=== PATIENT | male | born 1935 | race Caucasian/White ===

== ENCOUNTER 2017-09-06 12:31 | Emergency (ER) | payer OTHER ==
[2017-09-06 12:36] VITALS: BMI 24.7
--- NOTE | 2017-09-06 14:21 | DR.HTN ---
HPI - Time Seen Time seen: 14:00 - Primary Care Physician Primary Care Physician: IOANA - HPI Comment HPI Comment: PATIENT WAS AT STORE. CHECK BP. ELEVATED. HERE FOR EVALUATION. HAVE NERVOUS STOMACK. HAVE NEUTROPENIA AND SEVERAL - Complaints Chief Complaint Doctors Comments: ELEVATED BP. Chief Complaint:: PT. C/O HIGH BLOOD PRESSURE TODAY PT. STATES THIS MORNING HE HAD CHILLS AND HAD A "NERVOUS STOMACH, LIKE HE WAS SHAKING INSIDE." PT. STATES HIS B/P WAS 187/87 [employer]. DENIES PAIN OR ANY OTHER SYMPTOMS. - Reviewed Nurses Notes Reviewed: Yes - Source History Provided: Patient - Mode of Arrival Mode of Arrival: Ambulatory - Timing Onset of Chief Complaint: 09/06/17 - Severity What was the maximum recorded B/P?: 189/87 Severity: Moderate - Context Circumstances: Spontaneous Onset History of: Hypertension Treatment of HTN Prior to Arrival: Taking meds as prescribed Recent use of:: denies: Cocaine, Amphetamines, Cold medications - Associated Signs and Symptoms HTN Associated Signs and Symptoms: None PMH - PMH Past Medical History: Yes Past Medical History: Diabetes, Dyslipidemia, Hypertension Past Medical History Comment: PROSTATE CANCER Past Surgical History: Yes Surgical History: Other Past Surgical History Comment: PROSTATE - Family History History of Family Medical Conditions: Yes Family Medical History: Cancer - Social History Does patient currently use any type of tobacco product: No Have you used tobacco products in the last 12 months: No Type of Tobacco Use: None Does any household member use tobacco: No Alcohol Use: None Do you use any recreational Drugs:: No Lives With: Spouse Lives Where: Home - infectious screening In the last 2 months have you had wt loss of >10#?: NO Have you had fever, night sweats or hemotysis?: No Have you traveled outside the country in the last 6 months?: No Isolation: Standard ROS - Review of Systems Constitutional: No Symptoms Reported Eyes: No Symptoms Reported ENTM: No Symptoms Reported Respiratoy: No Symptoms Reported Cardiovascular: No Symptoms Reported Gastrointestinal/Abdominal: No Symptoms Reported Genitourinary: No Symptoms Reported Neurological: No Symptoms Reported Musculoskeletal: No Symptoms Reported Integumentary: No Symptoms Reported Hematologic/Lymphatic: Anemia, Other (NEUTROPENIA) Endocrine: No Symptoms Reported All Other Systems: Reviewed and Negative PE - Vital Signs Vitals: Temperature 97.8 F Pulse Rate 59 Respiratory Rate 18 Blood Pressure [Left Arm] 163/73 Blood Pressure [Right Arm] 125/63 Blood Pressure 140/95 O2 Sat by Pulse Oximetry 96 - General Limitations: No Limitations General Appearance: Alert - Head Head Exam: Normal Inspection - Eyes Eye exam: Normal Appearance Pupils: Regular, Round: Bilateral, Reactive: Bilateral Sclera/Conjunctival: Normal Inspection: Bilateral - ENT ENT Exam: Normal External Ear Exam - Neck Neck Exam: Trachea Midline - Chest Chest Inspection: Symmetric Chest Wall Rise - Respiratory Respiratory Exam: Normal Lung Sounds Bilat Respiratory Exam: Bilateral Rhonchi, Lower Rhonchi - Cardiovascular Cardiovascular Exam: Regular Rate, Normal Rhythm, Normal Heart Sounds - Abdominal Exam Abdominal Exam: Normal Bowel Sounds, Soft. negative: Tenderness - Extremities Extremities Exam: Normal Inspection - Back Back Exam: Normal Inspection - Neurologic Neurological Exam: Alert, Oriented X3 Speech: Fluid Speech Cranial Nerve Exam: EOM Function (II, III, IV, ): Normal Upper Motor Neuron Exam: Babinski Sign: Normal - Psychiatric Psychiatric Exam: Normal Affect, Normal Mood - Skin Skin Exam: Normal Color MDM - Additional Information Obtained Additional Information Obtained From: Family - Differential Diagnosis Differential Diagnosis: Hyertension, essential Differential Diagnosis Comment: NEUTROPENIA Course - Treatment Treatment: SEE ORDERS. - Education/Counseling Education/Counseling: Patient, Family, Education Educated On: Diagnosis, Needs for Follow Up ROR - Labs Reviewed Laboratory Results Reviewed?: Yes Result Diagrams: 09/06/17 14:26 09/06/17 14:26 Laboratory: WBC 1.5 X10^3/uL (3.6-10.0) L* 09/06/17 14: RBC 4.05 X10^6/uL (4.7-6.0) L 09/06/17 14:26 Hgb 11.0 g/dL (13.5-18.0) L 09/06/17 14:26 Hct 33.2 % (42.0-54.0) L 09/06/17 14: MCV 82.0 fL (80.0-100.0) 09/06/17 14:26 MCH 27.1 pg (27.0-34.0) 09/06/17 14: MCHC 33.1 g/dL (33.0-35.0) 09/06/17 14: RDW 16.4 % (11.6-16.5) 09/06/17 14:26 Plt Count 188 X10^3/uL (150.0-450.0) 09/06/17 14: Plt Count Comment Adequate (ADEQUATE) 09/06/17 14: MPV 7.0 fL (7.4-11.0) L 09/06/17 14: Neut % 52.6 % (42.0-75.0) 09/06/17 14: Lymph % 41.9 % (21.0-51.0) 09/06/17 14:26 [place] % 4.1 % (0.0-13.0) 09/06/17 14: Eos % 1.0 % (0.9-2.9) 09/06/17 14: Baso % 0.4 % (0.2-1.0) 09/06/17 14: Neut # 0.8 x10^3/uL (2.2-4.8) L 09/06/17 14: Lymph # 0.6 X10^3/uL (1.3-2.9) L 09/06/17 14:26 [place] # 0.1 x10^3/uL (0.3-0.8) L 09/06/17 14: Eos # 0.0 x10^3/uL (0.0-0.2) 09/06/17 14:26 Baso # 0.0 X10^3/uL (0.0-0.1) 09/06/17 14: Absolute Nucleated RBC 0.1 /100WBC 09/06/17 14:26 Total Counted 50 09/06/17 14:26 Neutrophils % (Manual) 56 % (39-76) 09/06/17 14:26 Lymphocytes % (Manual) 44 % (13-43) H 09/06/17 14:26 Plt Morphology Comment Normal (NORMAL) 09/06/17 14: RBC Morphology Normal (NORMAL) 09/06/17 14:26 Sodium 142 mmol/L (136-145) 09/06/17 14:26 Corrected Sodium 144 mmol/L (136-145) 09/06/17 14:26 Potassium 3.9 mmol/L (3.5-5.1) 09/06/17 14:26 Chloride 107 mmol/L (98-107) 09/06/17 14:26 Carbon Dioxide 26.5 mmol/L (21-32) 09/06/17 14:26 BUN 20 mg/dL (7-18) H 09/06/17 14:26 Creatinine 1.27 mg/dL (0.70-1.30) 09/06/17 14:26 Est GFR (MDRD) Af Amer > 60 (>60) 09/06/17 14:26 Est GFR (MDRD) Non-Af 58 (>60) L 09/06/17 14:26 Glucose 184 mg/dL (65-99) H 09/06/17 14:26 Calcium 8.5 mg/dL (8.5-10.1) 09/06/17 14:26 Corrected Calcium TNP 09/06/17 14:26 Total Bilirubin 0.20 mg/dL (0.2-1.0) 09/06/17 14:26 AST 12 Units/L (15-37) L 09/06/17 14:26 ALT 21 Units/L (12-78) 09/06/17 14:26 Alkaline Phosphatase 120 Units/L (46-116) H 09/06/17 14:26 Total Protein 7.0 g/dL (6.4-8.2) 09/06/17 14:26 Albumin 3.5 g/dL (3.4-5.0) 09/06/17 14:26 Globulin 3.5 g/dL (2.5-4.5) 09/06/17 14:26 Albumin/Globulin Ratio 1.0 Ratio (1.1-2.1) L 09/06/17 14:26 - Diagnosis Discharge Problem: Abdominal pain Qualifiers: Abdominal location: generalized Qualified Code(s): R10.84 - Generalized abdominal pain Hypertension Qualifiers: Hypertension type: essential hypertension Qualified Code(s): I10 - Essential ( primary) hypertension - Discharge Plan Disposition: 01 HOME, SELF-CARE Condition: Stable - Follow ups/Referrals Follow ups/Referrals: Oc Rivera [Primary Care Provider] - 2 days - Instructions Instructions: Hypertension, [id number], Neutropenia Additional Instructions: RETURN TO ED IF WORSE.
[2017-09-06 14:35] LABS: BASOPHILS % (AUTO) 0.4 % (0.2-1.0); HEMATOCRIT 33.2 % (42.0-54.0); LYMPHOCYTES # (AUTO) 0.6 X10^3/uL (1.3-2.9); LYMPHOCYTES % (AUTO) 41.9 % (21.0-51.0); MEAN CORPUSCULAR HEMOGLOBIN 27.1 pg (27.0-34.0); MEAN CORPUSCULAR HGB CONC 33.1 g/dL (33.0-35.0); MONOCYTES # (AUTO) 0.1 x10^3/uL (0.3-0.8); MONOCYTES % (AUTO) 4.1 % (0.0-13.0); NEUTROPHILS # (AUTO) 0.8 x10^3/uL (2.2-4.8); NEUTROPHILS % (AUTO) 52.6 % (42.0-75.0); PLATELET COUNT 188 X10^3/uL (150.0-450.0); RED BLOOD COUNT 4.05 X10^6/uL (4.7-6.0); RED CELL DISTRIBUTION WIDTH 16.4 % (11.6-16.5)
[2017-09-06 14:48] LABS: ALANINE AMINOTRANSFERASE 21 Units/L (12-78); ALBUMIN 3.5 g/dL (3.4-5.0); ALKALINE PHOSPHATASE 120 Units/L (46-116); ASPARTATE AMINO TRANSFERASE 12 Units/L (15-37); BLOOD UREA NITROGEN 20 mg/dL (7-18); CALCIUM 8.5 mg/dL (8.5-10.1); CARBON DIOXIDE 26.5 mmol/L (21-32); CHLORIDE 107 mmol/L (98-107); COR NA(FOR HYPERGLY) 144 mmol/L (136-145); CREATININE 1.27 mg/dL (0.70-1.30); SODIUM 142 mmol/L (136-145); WHITE BLOOD COUNT 1.5 X10^3/uL (3.6-10.0); eGFR BLACK RACES > 60 (>60); eGFR NON BLACK RACES 58 (>60)
[2017-09-06 14:56] VITALS: BP 163/73
[2017-09-06 15:03] LABS: PLATELET MORPHOLOGY COMMENT NORMAL (NORMAL)
== END 2017-09-06 16:22 | disposition home or self-care (01) ==
LOC: ER 12:46
DX: I10 Essential (primary) hypertension (principal); R10.84 Generalized abdominal pain
CPT/HCPCS: 36415; 80053; 85025; 99282; 99283

== ENCOUNTER 2018-06-01 16:10 | Inpatient (IN) ==
[2018-06-01] MEDS ORDERED: TUSSIONEX PENNKINETIC SUSP PO PRN (17:13)
[2018-06-01] MEDS ORDERED: SALINE 3% 15 ML NEB TX NEB ONE (17:20)
[2018-06-01] MEDS ORDERED: NS 100 ML IV + SPIKE MINIBAG* 100 ML IV ONE (17:28)
[2018-06-01] MEDS ORDERED: NS 1/2 1000 ML IV 1,000 ML IV ONE (17:30)
[2018-06-01] MEDS ORDERED: SALINE 3% 15 ML NEB TX ONE (17:31)
[2018-06-01 17:47] LABS: BASOPHILS % (AUTO) 0.5 % (0.2-1.0); EOSINOPHILS % (AUTO) 0.2 % (0.9-2.9); HEMATOCRIT 29.9 % (42.0-54.0); LYMPHOCYTES # (AUTO) 0.6 X10^3/uL (1.3-2.9); LYMPHOCYTES % (AUTO) 46.9 % (21.0-51.0); MEAN CORPUSCULAR HEMOGLOBIN 25.9 pg (27.0-34.0); MEAN CORPUSCULAR HGB CONC 33.4 g/dL (33.0-35.0); MEAN CORPUSCULAR VOLUME 77.4 fL (80.0-100.0); MEAN PLATELET VOLUME 7.3 fL (7.4-11.0); MONOCYTES # (AUTO) 0.2 x10^3/uL (0.3-0.8); MONOCYTES % (AUTO) 13.9 % (0.0-13.0); NEUTROPHILS # (AUTO) 0.5 x10^3/uL (2.2-4.8); NEUTROPHILS % (AUTO) 38.5 % (42.0-75.0); PLATELET COUNT 188 X10^3/uL (150.0-450.0); RED BLOOD COUNT 3.86 X10^6/uL (4.7-6.0); RED CELL DISTRIBUTION WIDTH 17.1 % (11.6-16.5)
[2018-06-01 17:59] LABS: WHITE BLOOD COUNT 1.3 X10^3/uL (3.6-10.0)
[2018-06-01] MEDS ORDERED: FORTAZ or TAZICEF VIAL INJ IVP SCH (18:00)
[2018-06-01] MEDS ORDERED: LEVAQUIN PREMIX IV 750 MG 750 MG/150 ML BAG IV SCH (18:00)
[2018-06-01 18:01] LABS: ALANINE AMINOTRANSFERASE 24 Units/L (12-78); ALBUMIN 3.3 g/dL (3.4-5.0); ALKALINE PHOSPHATASE 144 Units/L (46-116); ASPARTATE AMINO TRANSFERASE 14 Units/L (15-37); BLOOD UREA NITROGEN 20 mg/dL (7-18); CALCIUM 8.9 mg/dL (8.5-10.1); CHLORIDE 104 mmol/L (98-107); COR CA(FOR HYPOALB) 9.5 mg/dL (8.5-10.1); COR NA(FOR HYPERGLY) 140 mmol/L (136-145); CREATININE 1.41 mg/dL (0.70-1.30); SODIUM 140 mmol/L (136-145); TOTAL PROTEIN 7.1 g/dL (6.4-8.2); eGFR NON BLACK RACES 51 (>60)
[2018-06-01 18:10] LABS: CKMB % 3.7 % (<4); CREATINE KINASE 27 Units/L (39-308); CREATINE KINASE MB < 1.0 ng/mL (0-4.0); TROPONIN I < 0.02 ng/mL (0-1.5)
[2018-06-01 18:22] LABS: BAND NEUTROPHILS % 9 % (0-10); METAMYELOCYTES % 3
[2018-06-01 18:23] LABS: HYPOCHROMASIA SLIGHT; PLATELET MORPHOLOGY COMMENT NORMAL (NORMAL)
[2018-06-01 18:24] LABS: ANISOCYTOSIS SLIGHT
[2018-06-01] MEDS: NS 1/2 1000 ML IV 1,000 ML IV SCH (18:25)
[2018-06-01 18:33] LABS: BILIRUBIN,URINE NEGATIVE (NEGATIVE); BLOOD/HEMOGLOBIN,URINE NEGATIVE (NEGATIVE); GLUCOSE, URINE NEGATIVE (NEGATIVE); KETONES,URINE NEGATIVE (NEGATIVE); LEUKOCYTE ESTERASE ,URINE NEGATIVE (NEGATIVE); NITRITES,URINE NEGATIVE (NEGATIVE); PROTEIN,URINE NEGATIVE (NEGATIVE); UROBILINOGEN,URINE NORMAL (NORMAL)
[2018-06-01 18:38] LABS: APPEARANCE,URINE CLEAR (CLEAR); COLOR,URINE YELLOW (YELLOW)
[2018-06-01 18:51] VITALS: BMI 26.0
--- NOTE | 2018-06-01 19:32 | RAD ---
HISTORY: 82-year-old male with questionable pneumonia. Study: Frontal view of the chest. Comparison: None. Findings: Monitoring leads overlie the right lung base. The trachea is midline. The cardiac silhouette is enlarged with low lung volumes. The lungs are erick ar without focal consolidation, effusion or pneumothorax. Soft tissues are unremarkable. Osseous str uctures are unremarkable. IMPRESSION: 1. Cardiomegaly without other acute cardiopulmonary process. 2. Limited study secondary to monitoring leads. Reported By:
[2018-06-01] MEDS ORDERED: MAGNESIUM SULFATE 1 GRAM/100 mL PREMIX 1 G/100 ML BAG IV ONE (20:44)
[2018-06-01] MEDS: DUONEB 0.5 MG/3 MG NEB SCH (21:04)
[2018-06-01] MEDS: ROBITUSSIN DM PO SCH (21:37)
[2018-06-01] MEDS: RESTORIL CAP 15 MG PO PRN (21:53)
[2018-06-02] MEDS ORDERED: K-DUR TAB 20 MEQ PO ONE (00:07)
[2018-06-02 00:19] LABS: CREATINE KINASE 25 Units/L (39-308); CREATINE KINASE MB < 1.0 ng/mL (0-4.0); TROPONIN I < 0.02 ng/mL (0-1.5)
[2018-06-02 06:55] LABS: ALANINE AMINOTRANSFERASE 20 Units/L (12-78); ALBUMIN 2.9 g/dL (3.4-5.0); ALKALINE PHOSPHATASE 121 Units/L (46-116); ASPARTATE AMINO TRANSFERASE 10 Units/L (15-37); BLOOD UREA NITROGEN 21 mg/dL (7-18); CALCIUM 8.6 mg/dL (8.5-10.1); CARBON DIOXIDE 26.4 mmol/L (21-32); CHLORIDE 106 mmol/L (98-107); CKMB % 4.4 % (<4); COR CA(FOR HYPOALB) 9.5 mg/dL (8.5-10.1); CREATINE KINASE 23 Units/L (39-308); CREATINE KINASE MB < 1.0 ng/mL (0-4.0); CREATININE 1.41 mg/dL (0.70-1.30); SODIUM 140 mmol/L (136-145); TOTAL PROTEIN 6.4 g/dL (6.4-8.2); TROPONIN I < 0.02 ng/mL (0-1.5); eGFR NON BLACK RACES 51 (>60)
[2018-06-02 07:07] LABS: BASOPHILS % (AUTO) 0.5 % (0.2-1.0); EOSINOPHILS % (AUTO) 0.8 % (0.9-2.9); HEMATOCRIT 26.9 % (42.0-54.0); HEMOGLOBIN 9.2 g/dL (13.5-18.0); LYMPHOCYTES # (AUTO) 0.6 X10^3/uL (1.3-2.9); LYMPHOCYTES % (AUTO) 49.2 % (21.0-51.0); MEAN CORPUSCULAR HEMOGLOBIN 26.3 pg (27.0-34.0); MEAN CORPUSCULAR HGB CONC 34.3 g/dL (33.0-35.0); MEAN CORPUSCULAR VOLUME 76.8 fL (80.0-100.0); MEAN PLATELET VOLUME 7.7 fL (7.4-11.0); MONOCYTES # (AUTO) 0.3 x10^3/uL (0.3-0.8); MONOCYTES % (AUTO) 21.4 % (0.0-13.0); NEUTROPHILS # (AUTO) 0.4 x10^3/uL (2.2-4.8); NEUTROPHILS % (AUTO) 28.1 % (42.0-75.0); PLATELET COUNT 168 X10^3/uL (150.0-450.0); RED CELL DISTRIBUTION WIDTH 17.7 % (11.6-16.5)
[2018-06-02 07:14] LABS: WHITE BLOOD COUNT 1.3 X10^3/uL (3.6-10.0)
[2018-06-02 07:24] LABS: PLATELET MORPHOLOGY COMMENT NORMAL (NORMAL)
--- NOTE | 2018-06-02 07:35 | RAD ---
HISTORY: Follow-up pneumonia Study: Chest AP portable Comparison: 06/01/2018 Findings: The heart is mildly enlarged. No congestive heart failure is noted. The mikhail are normal. The lung fie lds are clear. No pleural effusions are identified. IMPRESSION: Mild cardiomegaly without congestive heart failure Lungs clear Reported By:
[2018-06-02] MEDS ORDERED: NS 1/2 1000 ML IV 1,000 ML IV ONE ×2 (07:47→22:02)
[2018-06-02] MEDS: DUONEB 0.5 MG/3 MG NEB SCH ×4 (07:59→20:18)
[2018-06-02] MEDS: NS 1/2 1000 ML IV 1,000 ML IV SCH ×2 (08:07→22:33)
[2018-06-02] MEDS: FORTAZ or TAZICEF VIAL INJ IVP SCH ×2 (08:08→21:00)
[2018-06-02] MEDS: ROBITUSSIN DM PO SCH ×4 (08:08→21:00)
--- NOTE | 2018-06-02 13:23 | DR.H&P ---
H&P - History & Physical for Day of: H&P Date: 06/01/18 - Chief Complaint Chief Complaint: cough, shortness of breath, weakness, low WBC count - History of Present Illness History of Present Illness: is a 82 year old patient of ours who presented to the hospital as a direct admission presented to the hospital as a direct admission for leukopenia and bronchopneumonia. Patient reports cough, shortness of breath, and weakness that began one day ago. On examination, he is noted with scattered wheezing throughout lung chavez. He has a history significant for the following: Cataracts, Hyperlipidemia, Bronchitis, Inginal Hernia, BPH, Arthritis, DM type II, Prostate CA. On arrival, vitals were 98.0-68 -18-98%RA-130/70. Labs were obtained. Abnormal lab values include the following : WBC 1.3, RBC 3.86, Hgb 10.0, Hct 29.9, MCH 25.9, RDW 17.1, MPV 7.3, BUN 20, Creatinine 1.41, GFR non 51, Glucose 111, AST 14, Alk Phos 144, Creatine Kinase 27, 25, Albumin 3.3, A/G Ratio 0.9, Magnesium 1.6. Blood Cultures x2 Pending. Urine culture pending. Chest X-Ray: Cardiomegaly without other acute cardiopulmonary process. Limited study secondary to monitoring leads. EKG: Sinus Rhythm. Multiple Ventricular Premature Complexes. Left Bundle Branch Block. Rate=68. He was started on Saline 3% neb x1, Fortaz 1gm IV Q8hr, Levaquin 750mg IV daily, Magnesium 1gm IV x1, Tussionex 5ml po Q12hr PRN, 1/2 NS @75ml/hr, Duoneb 0.5/3mg neb QID, Robitussin Dm 10ml po QID, OTBS ACHS. If hemoglobin should fall below 1.0, we will administer neuopgen. Otherwise, we plan to follow up with AM labs and continue to monitor patient. - Past Medical History Past Medical History: Arthritis, Diabetes, Dyslipidemia, Hypertension Additional Medical History: prostate cancer, BPH, - Past Surgical History Surgical History: Other Additional Surgical History: hernia repair - Family History Family Medical History: [place], Hypertension - Social History Does patient currently use any type of tobacco product: No Have you used tobacco products in the last 12 months: No Type of Tobacco Use: None Does any household member use tobacco: No Alcohol Use: None Drug Use: None - Medications Home Medications: No Known Drug Allergies Allergy (Verified 09/06/17 12:36) CONTINUE taking the following medications aspirin [Aspirin Low Dose] 81 mg PO QDAY 06/01/18 [History] cyanocobalamin (vitamin B-12) [Vitamin B-12] 1,000 mcg PO QDAY 06/01/18 [History ] eszopiclone 1 mg PO QHS 06/01/18 [History] metformin 1 tab PO DAILY 06/01/18 [History] montelukast 1 tab PO DAILY 06/01/18 [History] multivitamin [Multiple Vitamins] 1 tab PO QDAY 06/01/18 [History] omeprazole 1 cap PO DAILY 06/01/18 [History] simvastatin 1 tab PO HS 06/01/18 [History] tamsulosin 1 cap PO HS 06/01/18 [History] - Review of Systems Constitutional: Weakness Eyes: No Symptoms Reported ENT: No Symptoms Reported Respiratory: Cough, Shortness of Breath, Wheezing Cardiovascular: No Symptoms Reported Gastrointestinal: No Symptoms Reported Genitourinary: No Symptoms Reported Musculoskeletal: No Symptoms Reported Skin: No Symptoms Reported Neurological: Weakness - Physical Exam Vital Signs: Temperature 98.2 F Pulse Rate [Radial] 60 Pulse Rate 70 Respiratory Rate 18 Blood Pressure [Left Arm] 150/73 Blood Pressure [Right Arm] 125/63 Blood Pressure 163/73 O2 Sat by Pulse Oximetry 99 Oriented: Normal Eyes: Normal Ear: Normal Nose: Normal Throat: Normal Respiratory: Wheezes Throughout Cardiovascular: Normal. negative: S3, S4, Murmur : Normal Auscultation: Bowel Sounds: Normal Palpation: Normal Tenderness: Diffuse, Mild. negative: Rebound, Guarding, Rigidity Skin: Normal Musculoskeletal: Normal Psychiatric: Normal Mood Description: Calm Affect: Normal Speech Pattern: Clear - Assessment/Plan (1) Bronchopneumonia Status: Acute Plan: levaquin 750mg iv daily, fortaz 1gm iv q12h, duonebs, respiratory treatments, continue to monitor (2) Leukopenia Qualifiers: Leukopenia type: unspecified Qualified Code(s): D72.819 - Decreased white blood cell count, unspecified Status: Acute Plan: administer neuopgen if hemoglobin falls below 1.0, continue to monitor - Allergies Allergies/Adverse Reactions: Allergies Allergy/AdvReac Type Severity Reaction Status Date / Time No Known Drug Allergies Allergy Verified 09/06/17 12:36
[2018-06-02] MEDS ORDERED: PATIENT'S HOME MEDICATION (Lisinopril 10 MG) PO SCH (14:30)
[2018-06-02] MEDS ORDERED: ESZOPICLONE 1 MG PO SCH (14:30)
[2018-06-02] MEDS: TAB-A-VITE PO SCH (16:17)
[2018-06-02] MEDS: ZESTRIL TAB 10 MG PO SCH (16:18)
[2018-06-02] MEDS: VITAMIN B-12 PO SCH (16:18)
[2018-06-02] MEDS: PriLOSEC PO SCH (16:18)
[2018-06-02] MEDS: SINGULAIR TAB 10 MG PO SCH (16:18)
[2018-06-02] MEDS: ASPIRIN EC 81 MG PO SCH (16:18)
[2018-06-02] MEDS ORDERED: MAALOX or MYLANTA PO PRN (20:59)
[2018-06-02] MEDS: ZOCOR TAB 20 MG PO SCH (21:00)
[2018-06-02] MEDS: RESTORIL CAP 15 MG PO PRN (21:00)
[2018-06-02] MEDS: FLOMAX PO SCH (21:00)
[2018-06-03 05:23] LABS: BASOPHILS % (AUTO) 0.8 % (0.2-1.0); EOSINOPHILS % (AUTO) 0.6 % (0.9-2.9); HEMATOCRIT 25.6 % (42.0-54.0); HEMOGLOBIN 8.6 g/dL (13.5-18.0); LYMPHOCYTES # (AUTO) 0.6 X10^3/uL (1.3-2.9); LYMPHOCYTES % (AUTO) 49.9 % (21.0-51.0); MEAN CORPUSCULAR HEMOGLOBIN 25.9 pg (27.0-34.0); MEAN CORPUSCULAR HGB CONC 33.7 g/dL (33.0-35.0); MEAN CORPUSCULAR VOLUME 76.8 fL (80.0-100.0); MEAN PLATELET VOLUME 7.6 fL (7.4-11.0); MONOCYTES # (AUTO) 0.2 x10^3/uL (0.3-0.8); MONOCYTES % (AUTO) 14.7 % (0.0-13.0); NEUTROPHILS # (AUTO) 0.4 x10^3/uL (2.2-4.8); PLATELET COUNT 163 X10^3/uL (150.0-450.0); RED BLOOD COUNT 3.33 X10^6/uL (4.7-6.0); RED CELL DISTRIBUTION WIDTH 17.3 % (11.6-16.5)
[2018-06-03 05:27] LABS: WHITE BLOOD COUNT 1.1 X10^3/uL (3.6-10.0)
[2018-06-03 05:28] LABS: ALANINE AMINOTRANSFERASE 21 Units/L (12-78); ALBUMIN 2.6 g/dL (3.4-5.0); ALKALINE PHOSPHATASE 109 Units/L (46-116); ASPARTATE AMINO TRANSFERASE 12 Units/L (15-37); BLOOD UREA NITROGEN 21 mg/dL (7-18); CALCIUM 8.3 mg/dL (8.5-10.1); CARBON DIOXIDE 27.7 mmol/L (21-32); CHLORIDE 109 mmol/L (98-107); COR CA(FOR HYPOALB) 9.4 mg/dL (8.5-10.1); COR NA(FOR HYPERGLY) 144 mmol/L (136-145); CREATININE 1.31 mg/dL (0.70-1.30); SODIUM 143 mmol/L (136-145); eGFR NON BLACK RACES 56 (>60)
[2018-06-03 05:36] LABS: ANISOCYTOSIS SLIGHT; HYPOCHROMASIA 1+; PLATELET MORPHOLOGY COMMENT NORMAL (NORMAL)
--- NOTE | 2018-06-03 06:53 | RAD ---
Examination: AP chest History: SOB Comparison 06/02/2018 Findings: Stable heart size with essentially clear lungs. There is no evidence for pulmonary consoli dation, pulmonary edema or pleural effusion. Impression: No interval change; no acute findings. Reported By:
[2018-06-03] MEDS ORDERED: METFORMIN PO SCH (09:00)
[2018-06-03] MEDS: FORTAZ or TAZICEF VIAL INJ IVP SCH ×2 (09:20→21:50)
[2018-06-03] MEDS: LEVAQUIN PREMIX IV 750 MG 750 MG/150 ML BAG IV SCH (09:20)
[2018-06-03] MEDS: ROBITUSSIN DM PO SCH ×4 (09:20→21:50)
[2018-06-03] MEDS: SINGULAIR TAB 10 MG PO SCH (09:21)
[2018-06-03] MEDS: TAB-A-VITE PO SCH (09:21)
[2018-06-03] MEDS: ZESTRIL TAB 10 MG PO SCH (09:21)
[2018-06-03] MEDS: GLUCOPHAGE XR PO SCH (09:21)
[2018-06-03] MEDS: VITAMIN B-12 PO SCH (09:21)
[2018-06-03] MEDS: PriLOSEC PO SCH (09:21)
[2018-06-03] MEDS: ASPIRIN EC 81 MG PO SCH (09:21)
[2018-06-03] MEDS: DUONEB 0.5 MG/3 MG NEB SCH ×4 (09:37→20:15)
[2018-06-03] MEDS ORDERED: NS 100 ML IV 100 ML IV ONE (11:59)
--- NOTE | 2018-06-03 13:17 | CT ---
CT OF THE ABDOMEN AND PELVIS WITH CONTRAST HISTORY: Prostate cancer with urinary retention and left flank pain Comparison: 08/16/2014 Technique: Multiple axial images of the abdomen and pelvis were obtained from the lung bases to the pubic symphy sis follow the administration of IV contrast. Dose reduction techniques including Automated Exposure Control (AEC) and adjustment of mA and kV were utlized. Findings: The heart is normal in size. There is no pericardial effusion. Left-sided pleural effusion. Liver and spleen are normal in size, enhancement characteristics and contour. No focal lesions. The p ortal vein is patent. No ductal dilitation. Gallbladder is present. No calcified gallstones or gallbl adder wall thickening. The pancreas is unremarkable. Adrenal glands are normal. Kidneys enhance symme trically without hydronephrosis or nephrolithiasis. Simple bilateral renal cysts No bowel obstruction or inflammation. Severe diverticulosis including focal diverticular inflammation in the left lower quadrant without evidence of perforation or abscess. Normal appendix. No abnormal appearing mesenteric or retroperitoneal lymph nodes. No free fluid or fluid collections. The bladder is normal in appearance. Prostate removed. No free fluid or abnormal pelvic lymph nodes. No aggressive osseous lesions. IMPRESSION: 1. Acute sigmoid diverticulitis. Reported By:
[2018-06-03] MEDS ORDERED: NS 1/2 1000 ML IV 1,000 ML IV ONE (13:28)
--- NOTE | 2018-06-03 13:28 | CT ---
THORACIC SPINE CT WITHOUT IV CONTRAST CLINICAL INDICATION: Prostate cancer and urinary retention. TECHNIQUE: Multiple-row detector helical CT examination of the thoracic spine without IV contrast. Ax ial, sagittal, and coronal reconstructed images.Dose reduction techniques including Automated Exposur e Control (AEC) and adjustment of mA and kV were utlized. COMPARISON: None. FINDINGS: There is no evidence of acute fracture or subluxation. Normal alignment is maintained without scolios is or listhesis. Vertebral body heights are maintained. No aggressive osseous lesions are identified . Mild multilevel degenerative disc disease. Evaluation of the individual levels demonstrates no disc herniation, spinal canal stenosis, or neural foraminal narrowing. The paraspinal soft tissues and in trathoracic structures demonstrate no abnormality. IMPRESSION: 1. Mild multilevel degenerative disc disease without acute abnormality. Reported By:
--- NOTE | 2018-06-03 13:28 | CT ---
LUMBAR SPINE CT WITHOUT IV CONTRAST CLINICAL INDICATION: Prostate cancer and urinary retention. TECHNIQUE: Multiple-row detector helical CT examination of the lumbar spine. Axial, sagittal, and cor onal reconstructed images. Dose reduction techniques including Automated Exposure Control (AEC) and a djustment of mA and kV were utlized. COMPARISON: None. FINDINGS: There is no evidence of acute fracture or subluxation. Normal alignment is maintained without scolios is or listhesis. Vertebral body heights are maintained. No aggressive osseous lesions are identified. Multilevel degenerative disc disease most notable at L4-5 and L5-S1. Evaluation of the individual le vels demonstrates no disc herniation, spinal canal stenosis, or neural foraminal narrowing. L1 batool ioma. IMPRESSION: 1. Multilevel degenerative disc disease. 2. Incidental note of L1 hemangioma. Reported By:
[2018-06-03] MEDS: NS 1/2 1000 ML IV 1,000 ML IV SCH (13:39)
[2018-06-03] MEDS: FLAGYL IV PREMIX 500 MG BAG 500 MG/100 ML BAG IV SCH ×2 (17:32→23:02)
[2018-06-03] MEDS ORDERED: TYLENOL 325 MG TAB PO PRN (17:54)
[2018-06-03] MEDS: FLOMAX PO SCH (21:49)
[2018-06-03] MEDS: ZOCOR TAB 20 MG PO SCH (21:49)
[2018-06-03] MEDS: NEUPOGEN SC SCH (23:02)
[2018-06-04] MEDS ORDERED: NS 1/2 1000 ML IV 1,000 ML IV ONE (02:55)
[2018-06-04] MEDS: NS 1/2 1000 ML IV 1,000 ML IV SCH (02:58)
[2018-06-04 05:48] LABS: BASOPHILS % (AUTO) 0.7 % (0.2-1.0); HEMATOCRIT 28.5 % (42.0-54.0); HEMOGLOBIN 9.6 g/dL (13.5-18.0); LYMPHOCYTES # (AUTO) 0.4 X10^3/uL (1.3-2.9); LYMPHOCYTES % (AUTO) 35.2 % (21.0-51.0); MEAN CORPUSCULAR HEMOGLOBIN 25.8 pg (27.0-34.0); MEAN CORPUSCULAR HGB CONC 33.6 g/dL (33.0-35.0); MEAN CORPUSCULAR VOLUME 76.9 fL (80.0-100.0); MEAN PLATELET VOLUME 7.5 fL (7.4-11.0); MONOCYTES # (AUTO) 0.3 x10^3/uL (0.3-0.8); MONOCYTES % (AUTO) 27.7 % (0.0-13.0); NEUTROPHILS # (AUTO) 0.4 x10^3/uL (2.2-4.8); NEUTROPHILS % (AUTO) 35.4 % (42.0-75.0); PLATELET COUNT 184 X10^3/uL (150.0-450.0)
[2018-06-04 06:04] LABS: ALANINE AMINOTRANSFERASE 22 Units/L (12-78); ALBUMIN 2.9 g/dL (3.4-5.0); ALKALINE PHOSPHATASE 120 Units/L (46-116); ASPARTATE AMINO TRANSFERASE 10 Units/L (15-37); BLOOD UREA NITROGEN 16 mg/dL (7-18); CALCIUM 8.8 mg/dL (8.5-10.1); CARBON DIOXIDE 24.7 mmol/L (21-32); CHLORIDE 107 mmol/L (98-107); COR CA(FOR HYPOALB) 9.7 mg/dL (8.5-10.1); COR NA(FOR HYPERGLY) 143 mmol/L (136-145); CREATININE 1.23 mg/dL (0.70-1.30); SODIUM 142 mmol/L (136-145); TOTAL PROTEIN 6.7 g/dL (6.4-8.2); eGFR NON BLACK RACES > 60 (>60)
[2018-06-04] MEDS: FLAGYL IV PREMIX 500 MG BAG 500 MG/100 ML BAG IV SCH ×3 (06:18→21:44)
--- NOTE | 2018-06-04 07:06 | RAD ---
Examination: AP chest History: SOB Comparison 06/03/2018 Findings: Continued upper normal heart size with essentially clear lungs and pleural spaces. There is no evidence for pneumonia, pneumothorax or developing pleural effusion. Impression: No change; no acute findings. Reported By:
[2018-06-04 07:14] LABS: WHITE BLOOD COUNT 1.2 X10^3/uL (3.6-10.0)
[2018-06-04 07:20] LABS: PLATELET MORPHOLOGY COMMENT NORMAL (NORMAL)
[2018-06-04 07:21] LABS: MICROCYTOSIS 1+
[2018-06-04] MEDS: ASPIRIN EC 81 MG PO SCH (08:34)
[2018-06-04] MEDS: VITAMIN B-12 PO SCH (08:34)
[2018-06-04] MEDS: ZESTRIL TAB 10 MG PO SCH (08:34)
[2018-06-04] MEDS: GLUCOPHAGE XR PO SCH (08:34)
[2018-06-04] MEDS: TAB-A-VITE PO SCH (08:34)
[2018-06-04] MEDS: ROBITUSSIN DM PO SCH ×4 (08:34→21:45)
[2018-06-04] MEDS: SINGULAIR TAB 10 MG PO SCH (08:34)
[2018-06-04] MEDS: PriLOSEC PO SCH (08:34)
[2018-06-04] MEDS: DUONEB 0.5 MG/3 MG NEB SCH ×4 (09:17→21:07)
[2018-06-04] MEDS: NEUPOGEN SC SCH (09:32)
[2018-06-04] MEDS: FORTAZ or TAZICEF VIAL INJ IVP SCH ×2 (09:32→21:44)
[2018-06-04] MEDS: LEVAQUIN PREMIX IV 750 MG 750 MG/150 ML BAG IV SCH (09:33)
[2018-06-04] MEDS: FLOMAX PO SCH (21:44)
[2018-06-04] MEDS: ZOCOR TAB 20 MG PO SCH (21:44)
[2018-06-05] MEDS ORDERED: NS 1/2 1000 ML IV 1,000 ML IV ONE (00:35)
[2018-06-05] MEDS: NS 1/2 1000 ML IV 1,000 ML IV SCH (01:00)
[2018-06-05 05:07] LABS: BASOPHILS % (AUTO) 0.4 % (0.2-1.0); EOSINOPHILS % (AUTO) 0.7 % (0.9-2.9); HEMATOCRIT 26.8 % (42.0-54.0); HEMOGLOBIN 9.1 g/dL (13.5-18.0); LYMPHOCYTES # (AUTO) 0.5 X10^3/uL (1.3-2.9); LYMPHOCYTES % (AUTO) 24.1 % (21.0-51.0); MEAN CORPUSCULAR HEMOGLOBIN 25.9 pg (27.0-34.0); MEAN CORPUSCULAR HGB CONC 33.8 g/dL (33.0-35.0); MEAN CORPUSCULAR VOLUME 76.6 fL (80.0-100.0); MEAN PLATELET VOLUME 7.3 fL (7.4-11.0); MONOCYTES # (AUTO) 0.3 x10^3/uL (0.3-0.8); MONOCYTES % (AUTO) 12.4 % (0.0-13.0); NEUTROPHILS # (AUTO) 1.3 x10^3/uL (2.2-4.8); NEUTROPHILS % (AUTO) 62.4 % (42.0-75.0); PLATELET COUNT 162 X10^3/uL (150.0-450.0); RED CELL DISTRIBUTION WIDTH 17.3 % (11.6-16.5); WHITE BLOOD COUNT 2.1 X10^3/uL (3.6-10.0)
[2018-06-05 05:17] LABS: ALANINE AMINOTRANSFERASE 17 Units/L (12-78); ALBUMIN 2.7 g/dL (3.4-5.0); ALKALINE PHOSPHATASE 114 Units/L (46-116); ASPARTATE AMINO TRANSFERASE 9 Units/L (15-37); BLOOD UREA NITROGEN 16 mg/dL (7-18); CALCIUM 8.6 mg/dL (8.5-10.1); CARBON DIOXIDE 24.4 mmol/L (21-32); CHLORIDE 109 mmol/L (98-107); COR CA(FOR HYPOALB) 9.6 mg/dL (8.5-10.1); COR NA(FOR HYPERGLY) 143 mmol/L (136-145); CREATININE 1.24 mg/dL (0.70-1.30); SODIUM 142 mmol/L (136-145); TOTAL PROTEIN 6.1 g/dL (6.4-8.2); eGFR NON BLACK RACES 60 (>60)
[2018-06-05 06:11] LABS: BAND NEUTROPHILS % 10 % (0-10)
[2018-06-05 06:12] LABS: HYPOCHROMASIA SLIGHT; PLATELET MORPHOLOGY COMMENT NORMAL (NORMAL)
--- NOTE | 2018-06-05 08:38 | PCM.PROG ---
Progress Note - Progress Note for Day of Date of Exam: 06/04/18 - Subjective Subjective: 82 WM ADMITTED WITH LOWER ABDOMINAL PAIN, DX WITH PNEUMONIA ON OPT BASIS AND LEUKOPENIA. PT HAD CT ABD/PELIVIS ON06/03 REVEALED ACUTE DIVERTICULITIS. PT ON IV FLAGYL AND LEVAQUIN. PT HAD POSITIVE OCCULT STOOL AND NORMAL CXR THIS AM. PT DENIES ANY COUGH OR CHEST CONGESTION. PT RECIEVED NEUPOGEN ON 06/03 WITH WBC 1.2 THIS AM, WILL CONTINUE WITH NEUPOGEN X 3 DOSES. PLAN TO REPEAT AM LABS, CONTINUE CURRENT MEDICAITON REGIMEN. - Past Medical Family Social History Past Med/Fam/Surg Hx: No changes since H&P Allergies: Allergies No Known Drug Allergies Allergy (Verified 09/06/17 12:36) - Review of Systems ROS: No change since H&P - Vital Signs and I&O's Vital Signs: Temperature 98.9 F Pulse Rate [Radial] 51 Pulse Rate 77 Respiratory Rate 20 Blood Pressure [Left Arm] 130/68 Blood Pressure [Right Arm] 125/63 Blood Pressure 163/73 O2 Sat by Pulse Oximetry 97 Intake and Output: Intake & Output 06/02/18 06/03/18 06/04/18 06/05/18 11:59 11:59 11:59 11:59 Intake Total 1340 / 1340 1620 / 1620 4151 / 4151 840 / 840 Output Total 350 / 350 600 / 600 Balance 990 / 990 1020 / 1020 4151 / 4151 840 / 840 - Physical Exam Oriented: Normal Eyes: Normal Ear: Normal Nose: Normal Throat: Normal Respiratory: Diminished Cardiovascular: Normal. negative: S3, S4, Murmur : Normal Auscultation: Bowel Sounds: Normal Tenderness: Diffuse, LUQ, LLQ, Mild. negative: Rebound, Guarding, Rigidity Skin: Normal Musculoskeletal: Normal Psychiatric: Normal Mood Description: Calm Affect: Normal Speech Pattern: Clear, Appropriate - Laboratory and Diagnostics Result Diagrams: 06/05/18 04:35 06/05/18 04:35 Labs: 06/03/18 23:29 Sputum - Expectorated Sputum - Final 06/01/18 17:35 Blood Blood Culture - Preliminary 06/01/18 17:29 Blood Blood Culture - Preliminary 06/01/18 18:07 Urine,Clean Catch Urine Culture - Final Laboratory WBC 2.1 X10^3/uL (3.6-10.0) L 06/05/18 04:35 RBC 3.50 X10^6/uL (4.7-6.0) L 06/05/18 04:35 Hgb 9.1 g/dL (13.5-18.0) L 06/05/18 04:35 Hct 26.8 % (42.0-54.0) L 06/05/18 04:35 MCV 76.6 fL (80.0-100.0) L 06/05/18 04:35 MCH 25.9 pg (27.0-34.0) L 06/05/18 04:35 MCHC 33.8 g/dL (33.0-35.0) 06/05/18 04:35 RDW 17.3 % (11.6-16.5) H 06/05/18 04:35 Plt Count 162 X10^3/uL (150.0-450.0) 06/05/18 04:35 Plt Count Comment Adequate (ADEQUATE) 06/05/18 04:35 MPV 7.3 fL (7.4-11.0) L 06/05/18 04:35 Neut % (Auto) 62.4 % (42.0-75.0) 06/05/18 04:35 Lymph % (Auto) 24.1 % (21.0-51.0) 06/05/18 04:35 [place] % (Auto) 12.4 % (0.0-13.0) 06/05/18 04:35 Eos % (Auto) 0.7 % (0.9-2.9) L 06/05/18 04:35 Baso % (Auto) 0.4 % (0.2-1.0) 06/05/18 04:35 Neut # (Auto) 1.3 x10^3/uL (2.2-4.8) L 06/05/18 04:35 Lymph # (Auto) 0.5 X10^3/uL (1.3-2.9) L 06/05/18 04:35 [place] # (Auto) 0.3 x10^3/uL (0.3-0.8) 06/05/18 04:35 Eos # (Auto) 0.0 x10^3/uL (0.0-0.2) 06/05/18 04:35 Baso # (Auto) 0.0 X10^3/uL (0.0-0.1) 06/05/18 04:35 Absolute Nucleated RBC 0.0 /100WBC 06/05/18 04:35 Total Counted 100 06/05/18 04:35 Neutrophils % (Manual) 52 % (39-76) 06/05/18 04:35 Band Neutrophils % 10 % (0-10) 06/05/18 04:35 Lymphocytes % (Manual) 29 % (13-43) 06/05/18 04:35 Monocytes % (Manual) 9 % (4-9) 06/05/18 04:35 Eosinophils % (Manual) 4 % (0-6) 06/04/18 04:20 Metamyelocytes % 3 06/01/18 17:29 Atypical Lymphocytes 4 06/01/18 17:29 Plt Morphology Comment Normal (NORMAL) 06/05/18 04:35 RBC Morphology Abnormal (NORMAL) 06/05/18 04:35 Hypochromasia Slight A 06/05/18 04:35 Anisocytosis Slight A 06/03/18 04:30 Microcytosis 1+ A 06/04/18 04:20 Sodium 142 mmol/L (136-145) 06/05/18 04:35 Corrected Sodium 143 mmol/L (136-145) 06/05/18 04:35 Potassium 3.9 mmol/L (3.5-5.1) 06/05/18 04:35 Chloride 109 mmol/L (98-107) H 06/05/18 04:35 Carbon Dioxide 24.4 mmol/L (21-32) 06/05/18 04:35 BUN 16 mg/dL (7-18) 06/05/18 04:35 Creatinine 1.24 mg/dL (0.70-1.30) 06/05/18 04:35 Est GFR (MDRD) Af Amer > 60 (>60) 06/05/18 04:35 Est GFR (MDRD) Non-Af 60 (>60) 06/05/18 04:35 Glucose 135 mg/dL (65-99) H 06/05/18 04:35 POC Glucose (mg/dL) 151 mg/dL (65-99) H 06/03/18 11:40 Calcium 8.6 mg/dL (8.5-10.1) 06/05/18 04:35 Corrected Calcium 9.6 mg/dL (8.5-10.1) 06/05/18 04:35 Magnesium 2.0 mg/dL (1.7-2.9) 06/02/18 05:02 Total Bilirubin 0.30 mg/dL (0.2-1.0) 06/05/18 04:35 AST 9 Units/L (15-37) L 06/05/18 04:35 ALT 17 Units/L (12-78) 06/05/18 04:35 Alkaline Phosphatase 114 Units/L (46-116) 06/05/18 04:35 Creatine Kinase 23 Units/L (39-308) L 06/02/18 05:02 CK-MB (CK-2) < 1.0 ng/mL (0-4.0) 06/02/18 05:02 CK/CKMB % Calc 4.4 % (<4) 06/02/18 05:02 Troponin I < 0.02 ng/mL (0-1.5) 06/02/18 05:02 Total Protein 6.1 g/dL (6.4-8.2) L 06/05/18 04:35 Albumin 2.7 g/dL (3.4-5.0) L 06/05/18 04:35 Globulin 3.4 g/dL (2.5-4.5) 06/05/18 04:35 Albumin/Globulin Ratio 0.8 Ratio (1.1-2.1) L 06/05/18 04:35 Specimen Type Clean catch urine 06/01/18 18:07 Urine Color Yellow (YELLOW) 06/01/18 18:07 Urine Appearance Clear (CLEAR) 06/01/18 18:07 Urine pH 6.0 (5.0 - 8.0) 06/01/18 18:07 Ur Specific Mobile 1.010 (1.000-1.030) 06/01/18 18:07 Urine Protein Negative (NEGATIVE) 06/01/18 18:07 Urine Glucose (UA) Negative (NEGATIVE) 06/01/18 18:07 Urine Ketones Negative (NEGATIVE) 06/01/18 18:07 Urine Occult Blood Negative (NEGATIVE) 06/01/18 18:07 Urine Nitrite Negative (NEGATIVE) 06/01/18 18:07 Urine Bilirubin Negative (NEGATIVE) 06/01/18 18:07 Urine Urobilinogen Normal (NORMAL) 06/01/18 18:07 Ur Leukocyte Esterase Negative (NEGATIVE) 06/01/18 18:07 Stool Description 25g black semi-solid 06/05/18 07:43 Stl Occult Blood (IFOB) Negative (NEGATIVE) 06/05/18 07:43 - Plan (1) Acute diverticulitis Status: Acute Plan: CONTINUE IV ATBX, FLAGYL AND LEVAQUIN. GENTLE IV HYDRATION, PAIN AND NAUSEA CONTROL. OCCULT STOOL COLLECTED. REPEAT AM LABS. BP AND BS CONTROL (2) Leukopenia Status: Acute Qualifiers: Leukopenia type: unspecified Qualified Code(s): D72.819 - Decreased white blood cell count, unspecified Plan: administer neuopgen X 3DOSE RECOMMENDED BY DR LAITH BARRIGA, HEM/ONCO (3) Abdominal pain Status: Acute Qualifiers: Abdominal location: generalized Qualified Code(s): R10.84 - Generalized abdominal pain (4) Ileus Status: Acute (5) Diabetes mellitus, type 2 Status: Chronic (6) Hypertension Status: Acute Qualifiers: Hypertension type: essential hypertension Qualified Code(s): I10 - Essential (primary) hypertension
[2018-06-05] MEDS: VITAMIN B-12 PO SCH (08:44)
[2018-06-05] MEDS: ZESTRIL TAB 10 MG PO SCH (08:48)
[2018-06-05] MEDS: ASPIRIN EC 81 MG PO SCH (08:48)
[2018-06-05] MEDS: TAB-A-VITE PO SCH (08:48)
[2018-06-05] MEDS: SINGULAIR TAB 10 MG PO SCH (08:49)
[2018-06-05] MEDS: ROBITUSSIN DM PO SCH (08:49)
[2018-06-05] MEDS: PriLOSEC PO SCH (08:50)
[2018-06-05] MEDS: NEUPOGEN SC SCH (08:50)
[2018-06-05] MEDS: GLUCOPHAGE XR PO SCH (08:50)
[2018-06-05] MEDS: LEVAQUIN PREMIX IV 750 MG 750 MG/150 ML BAG IV SCH (08:51)
[2018-06-05] MEDS: FORTAZ or TAZICEF VIAL INJ IVP SCH (08:51)
[2018-06-05] MEDS: DUONEB 0.5 MG/3 MG NEB SCH (09:20)
[2018-06-05 10:26] VITALS: BP 151/74
--- NOTE | 2018-07-11 23:36 | DR.CARTERD ---
- Discharge Summary for: Discharge Summary for Date of:: 06/05/18 - Admission Date Date of Admission: 06/01/18 - Admission Diagnoses Admission Diagnosis: (1) Bronchopneumonia (2) Leukopenia - Discharge Date Discharge Date: 06/05/18 - Discharge Diagnoses Discharge Diagnosis: (1) Acute diverticulitis (2) Leukopenia (3) Abdominal pain (4) Ileus (5) Diabetes mellitus, type 2 (6) Hypertension - Hospital Course Hospital Course: Mr. Musa is a 82 year old patient of ours who presented to the hospital as a direct admission presented to the hospital as a direct admission for leukopenia and bronchopneumonia. Patient reported cough, shortness of breath, and weakness that began one day prior. On examination, he was noted with scattered wheezing throughout lung chavez. He had a history significant for the following: Cataracts, Hyperlipidemia, Bronchitis, Inginal Hernia, BPH, Arthritis, DM type II, Prostate CA. On arrival, vitals were 98.0-68-18-98%RA-130/70. Labs were obtained. Abnormal lab values included the following: WBC 1.3, RBC 3.86, Hgb 10.0, Hct 29.9, MCH 25.9, RDW 17.1, MPV 7.3, BUN 20, Creatinine 1.41, GFR non 51, Glucose 111, AST 14, Alk Phos 144, Creatine Kinase 27, 25, Albumin 3.3, A/G Ratio 0.9, Magnesium 1.6. Blood and urine cultures obtained. Chest X-Ray: Cardiomegaly without other acute cardiopulmonary process. Limited study secondary to monitoring leads. EKG: Sinus Rhythm. Multiple Ventricular Premature Complexes. Left Bundle Branch Block. Rate=68. He was started on Saline 3% neb x1, Fortaz 1gm IV Q8hr, Levaquin 750mg IV daily, Magnesium 1gm IV x1, Tussionex 5ml po Q12hr PRN, 1/2 NS @75ml/hr, Duoneb 0.5/3mg neb QID, Robitussin Dm 10ml po QID, OTBS ACHS. Patient had lower abdominal pain, left flank pain. CTs were obtained. CT of abd/pelvis reported: Acute Sigmoid Diverticulitis. Lumbar spine CT reported: Multilevel degenerative disc disease; incidental note of L1 hemangioma. Thoracic spine CT reported: Mild multilevel degenerative disc disease without acute abnormality. Patient placed on IV Flagyl and IV Levaquin for acute diverticulitis. He received 3 doses of Neupogen also. On day five, WBC increased to 2.1. He reported he felt better. He reported improvement in symptoms. He reported only mild abdominal tenderness upon palpation. Patient's appetite was fair. Vital signs stable. We planned for discharge. Instructions for medications and follow up were discussed with patient and family, both voiced understanding. Patient discharged home in stable condition with family. - Discharge Medications Discharge Medications: Home Medication List aspirin [Aspirin Low Dose] 81 mg PO QDAY 06/01/18 [History] cyanocobalamin (vitamin B-12) [Vitamin B-12] 1,000 mcg PO QDAY 06/01/18 [History] eszopiclone 1 mg PO QHS 06/01/18 [History] metformin 1 tab PO DAILY 06/01/18 [History] montelukast 1 tab PO DAILY 06/01/18 [History] multivitamin [Multiple Vitamins] 1 tab PO QDAY 06/01/18 [History] omeprazole 1 cap PO DAILY 06/01/18 [History] simvastatin 1 tab PO HS 06/01/18 [History] tamsulosin 1 cap PO HS 06/01/18 [History] ciprofloxacin HCl [Cipro] 500 mg PO BID #20 tab 06/05/18 [Rx] metronidazole [Flagyl] 500 mg PO QID #30 tab 06/05/18 [Rx] Prescriptions: ciprofloxacin HCl [Cipro] Oc Rivera metronidazole [Flagyl] Oc Rivera - Discharge Disposition Discharge Disposition: Patient is to follow up in our office in one week and with Dr. Benja Musa in one week.
== END 2018-06-05 10:30 | disposition home or self-care (01) | DRG 194 ==
LOC: MED/SURG 16:10
PROVIDERS: ADMIT Internal Medicine; ATTEND Internal Medicine
DX: Z90.79 Acquired absence of other genital organ(s); D72.818 Other decreased white blood cell count; R10.30 Lower abdominal pain, unspecified; R53.1 Weakness; K57.92 Diverticulitis of intestine, part unspecified, without perforation or abscess without bleeding; R10.84 Generalized abdominal pain; K56.7 Ileus, unspecified; R06.02 Shortness of breath; E11.65 Type 2 diabetes mellitus with hyperglycemia; Z85.46 Personal history of malignant neoplasm of prostate; E78.2 Mixed hyperlipidemia; J18.0 Bronchopneumonia, unspecified organism; K92.1 Melena; M54.5 Low back pain; I10 Essential (primary) hypertension
CPT/HCPCS: 36415; 71010; 71045; 72128; 72131; 74177; 80053; 81003; 82270; 82550; 82553; 83735; 84484; 85025; 85060; 87040; 87070; 87086; 87205; 93005; 94640; 94760; 99231; A4222; S0030; J0713; J1442; J1956; J3475; J3490; J7050; J7620

== ENCOUNTER 2020-05-13 19:45 | Inpatient (IN) ==
--- NOTE | 2020-05-13 20:17 | DR.SOBA ---
HPI Time Seen Time Seen by Provider: 05/13/20 20:12 Primary Care Physician Primary Care Physician: IOANA HPI Comment HPI Comment: Pt with daughter who reports he did well over the weekend and earlier today; became acute sob after bath tonight and presented as below; he says he feels "fine" and has oxygen in place; no fever, chills, n/v/d, abd pain, diarrhea; he has dementia and is confused routinely. Complaints Chief Complaint:: PT IN ED VIA WHEELCHAIR WITH C/O SOB. PT TESTED POSITIVE FOR COVID TUESDAY VIA RAPID SWAB AT [facility] IN [place]. PT RETRACTING AND USING ACCESSORY MUSCLES TO BREATHING. HR 140'S - 150'S RESP 30 - 40. COVID-19 Coronavirus risk:travel/contact w/high risk person: Yes Has patient experienced Coronavirus symptoms: Yes Coronavirus symptoms experienced: Fever, Coughing and Shortness of Breath Reviewed Nurses Notes Reviewed: Yes Source History Provided: Family Member Mode of Arrival Mode of Arrival: Ambulatory Timing Onset of Chief Complaint: 05/13/20 PMH PMH Past Medical History: Yes Past Medical History: Arthritis, Dementia, Diabetes, Dyslipidemia and Hype rtension Past Surgical History: Yes Surgical History: Other Past Surgical History Comment: HERNIA Family History History of Family Medical Conditions: Yes Family Medical History: VT and Hypertension Social History Does any household member use tobacco: No Alcohol Use: None Do you use any recreational Drugs:: No Lives With: Spouse Lives Where: Home Travel Risk Coronavirus risk:travel/contact w/high risk person: Yes Has patient experienced Coronavirus symptoms: Yes Coronavirus symptoms experienced: Fever, Coughing and Shortness of Breath Infectious screening In the last 2 months have you had wt loss of >10#?: NO Have you had fever, night sweats or hemotysis?: No Have you traveled outside the country in the last 6 months?: No Isolation: Droplet ROS Review of Systems Constitutional: See HPI Respiratoy: See HPI Unable to Obtain Due To: Dementia PE Vital Signs Vitals: Temperature 102.0 F Pulse Rate 143 Respiratory Rate 30 Blood Pressure [Left Arm] 151/70 Blood Pressure 140/73 O2 Sat by Pulse Oximetry 91 General Limitations: No Limitations General Appearance: Alert and In No Apparent Distress Head Head Exam: Normal Inspection, Atraumatic and Normocephalic Eyes Eye exam: Normal Appearance, PERRL and EOMI Neck Neck Exam: Normal Inspection, Full ROM and Trachea Midline Chest Chest Inspection: Normal Inspection and Symmetric Chest Wall Rise Respiratory Respiratory Exam: Normal Lung Sounds Bilat and Accessory Muscle Use Respiratory Exam: Bilateral: Clear to Auscultation Cardiovascular Cardiovascular Exam: Normal Rhythm and Tachycardia Abdominal Exam Abdominal Exam: Normal Inspection, Normal Bowel Sounds and Soft Extremities Extremities Exam: Normal Inspection and Full ROM Neurologic Neurological Exam: Alert (confused, pleasant) Psychiatric Psychiatric Exam: Normal Affect and Normal Mood Skin Skin Exam: Warm, Dry and Intact ROR Labs Reviewed Laboratory Results Reviewed?: Yes Result Diagrams: 05/13/20 20:35 05/13/20 20:35 Laboratory: WBC 1.0 X10^3/uL (3.6-10.0) L* 05/13/20 20:35 RBC 3.55 X10^6/uL (4.7-6.0) L 05/13/20 20:35 Hgb 10.3 g/dL (13.5-18.0) L 05/13/20 20:35 Hct 30.6 % (42.0-54.0) L 05/13/20 20:35 MCV 86.2 fL (80.0-100.0) 05/13/20 20:35 MCH 29.1 pg (27.0-34.0) 05/13/20 20:35 MCHC 33.7 g/dL (33.0-35.0) 05/13/20 20:35 RDW 15.2 % (11.6-16.5) 05/13/20 20:35 Plt Count 229 X10^3/uL (150.0-450.0) 05/13/20 20:35 Plt Count Comment Adequate (ADEQUATE) 05/13/20 20:35 MPV 7.6 fL (7.4-11.0) 05/13/20 20:35 Neut % (Auto) 64.3 % (42.0-75.0) 05/13/20 20:35 Lymph % (Auto) 20.2 % (21.0-51.0) L 05/13/20 20:35 Lewis % (Auto) 14.9 % (0.0-13.0) H 05/13/20 20:35 Eos % (Auto) 0.0 % (0.9-2.9) L 05/13/20 20:35 Baso % (Auto) 0.6 % (0.2-1.0) 05/13/20 20:35 Neut # (Auto) 0.7 x10^3/uL (2.2-4.8) L 05/13/20 20:35 Lymph # (Auto) 0.2 X10^3/uL (1.3-2.9) L 05/13/20 20:35 Lewis # (Auto) 0.2 x10^3/uL (0.3-0.8) L 05/13/20 20:35 Eos # (Auto) 0.0 x10^3/uL (0.0-0.2) 05/13/20 20:35 Baso # (Auto) 0.0 X10^3/uL (0.0-0.1) 05/13/20 20:35 Absolute Nucleated RBC 0.4 /100WBC 05/13/20 20:35 Total Counted 100 05/13/20 20:35 Neutrophils % (Manual) 50 % (39-76) 05/13/20 20:35 Band Neutrophils % 8 % (0-10) 05/13/20 20:35 Lymphocytes % (Manual) 32 % (13-43) 05/13/20 20:35 Monocytes % (Manual) 10 % (4-9) H 05/13/20 20:35 Plt Morphology Comment Normal (NORMAL) 05/13/20 20:35 RBC Morphology Normal (NORMAL) 05/13/20 20:35 Sample Site Rrad 05/13/20 20:44 ABG pH 7.440 (7.35-7.45) 05/13/20 20:44 ABG pCO2 19.0 mmHg (35.0-45.0) L* 05/13/20 20:44 ABG pO2 77.0 mmHg (80.0-100.0) L 05/13/20 20:44 ABG HCO3 12.9 mmol/L (22-26) L* 05/13/20 20:44 ABG O2 Saturation 96.0 % (90-100) 05/13/20 20:44 ABG Base Excess -9.0 mmol/L (-2.0-2.0) L 05/13/20 20:44 Calixto Test Pos 05/13/20 20:44 A-a Gradient 49.0 mmHg 05/13/20 20:44 FiO2 21.0 05/13/20 20:44 Blood Gas Comments Mariana abg well-mtf 05/13/20 20:44 Sodium 136 mmol/L (136-145) 05/13/20 20:35 Corrected Sodium 141 mmol/L (136-145) 05/13/20 20:35 Potassium 4.4 mmol/L (3.5-5.1) 05/13/20 20:35 Chloride 105 mmol/L (98-107) 05/13/20 20:35 Carbon Dioxide 16.6 mmol/L (21-32) L 05/13/20 20:35 BUN 45 mg/dL (7-18) H 05/13/20 20:35 Creatinine 1.98 mg/dL (0.70-1.30) H 05/13/20 20:35 Est GFR (MDRD) Af Amer 42 (>60) L 05/13/20 20:35 Est GFR (MDRD) Non-Af 35 (>60) L 05/13/20 20:35 Glucose 323 mg/dL (65-99) H 05/13/20 20:35 Calcium 9.3 mg/dL (8.5-10.1) 05/13/20 20:35 Corrected Calcium 9.9 mg/dL (8.5-10.1) 05/13/20 20:35 Ferritin 1949 ng/mL (26-388) H 05/13/20 20:35 Total Bilirubin 0.50 mg/dL (0.2-1.0) 05/13/20 20:35 AST 14 Units/L (15-37) L 05/13/20 20:35 ALT 24 Units/L (12-78) 05/13/20 20:35 Alkaline Phosphatase 76 Units/L (46-116) 05/13/20 20:35 C-Reactive Protein 121.20 mg/L (0-3.0) H 05/13/20 20:35 Total Protein 7.1 g/dL (6.4-8.2) 05/13/20 20:35 Albumin 3.2 g/dL (3.4-5.0) L 05/13/20 20:35 Globulin 3.9 g/dL (2.5-4.5) 05/13/20 20:35 Albumin/Globulin Ratio 0.8 Ratio (1.1-2.1) L 05/13/20 20:35 XRAY XRAY Interpreted by: Radiologist X-ray Results: cxr: Mild discoid atelectasis or scarring along the lung bases which is less prominent with a questionable tiny effusion or pleural thickening along the left lung base laterally which is decreased. No infiltrate is seen. Opioid Opioid Risk Tool Age (Gavin box if 16-45): No History of Preadolescent Sexual Abuse: No Total: 0 Total Score Risk Category: Low Risk Copyright: [facility] predicting aberrant behaviors Diagnosis Discharge Problem: COVID-19, Hypoxia Sepsis Qualifiers: Sepsis type: sepsis due to unspecified organism Sepsis acute organ dysfunction status: with acute organ dysfunction Severe sepsis acute organ dysfunction type: acute respiratory failure Acute respiratory failure type: with hypoxia Severe sepsis shock status: without septic shock Qualified Code(s): A41.9 - Sepsis, unspecified organism Leukopenia Qualifiers: Leukopenia type: lymphocytopenia Qualified Code(s): D72.810 - Lymphocytopenia Dementia Qualifiers: Dementia type: unspecified type Dementia behavioral disturbance: without behavioral disturbance Qualified Code(s): F03.90 - Unspecified dementia without behavioral disturbance Dyspnea Qualifiers: Dyspnea type: acute respiratory distress Qualified Code(s): R06.03 - Acute respiratory distress Instructions Instructions: Hypoxia Sepsis, Adult Forms: Precautions for COVID19 Patient Portal Social Distancing
[2020-05-13 20:45] LABS: BASOPHILS % (AUTO) 0.6 % (0.2-1.0); HEMATOCRIT 30.6 % (42.0-54.0); HEMOGLOBIN 10.3 g/dL (13.5-18.0); LYMPHOCYTES # (AUTO) 0.2 X10^3/uL (1.3-2.9); LYMPHOCYTES % (AUTO) 20.2 % (21.0-51.0); MEAN CORPUSCULAR HEMOGLOBIN 29.1 pg (27.0-34.0); MEAN CORPUSCULAR HGB CONC 33.7 g/dL (33.0-35.0); MEAN CORPUSCULAR VOLUME 86.2 fL (80.0-100.0); MEAN PLATELET VOLUME 7.6 fL (7.4-11.0); MONOCYTES # (AUTO) 0.2 x10^3/uL (0.3-0.8); MONOCYTES % (AUTO) 14.9 % (0.0-13.0); NEUTROPHILS # (AUTO) 0.7 x10^3/uL (2.2-4.8); NEUTROPHILS % (AUTO) 64.3 % (42.0-75.0); PLATELET COUNT 229 X10^3/uL (150.0-450.0); RED BLOOD COUNT 3.55 X10^6/uL (4.7-6.0); RED CELL DISTRIBUTION WIDTH 15.2 % (11.6-16.5)
--- NOTE | 2020-05-13 20:49 | RAD ---
HISTORYPT IN ED VIA WHEELCHAIR WITH C/O SOB. PT TESTED POSITIVE FOR COVID TUESDAY VIA RAPID SWAB AT [facility] IN [place]. PT RETRACTING AND USING ACCESSORY MUSCLES TO BREATHING. HR 140'S - 150'S RESP 30 - 40.STUDYCHEST, 1 [id number] heart is normal. The pulmonary vessels are less prominent. The lungs are hyperinflated with mild linear densities along the lung bases which are less prominent. There is minimal blunting of the left costophrenic sulcus which is decreased. No consolidation is seen.IMPRESSIONMild discoid atelectasis or scarring along the lung bases which is less prominent with a questionable tiny effusion or pleural thickening along the left lung base laterally which is decreased. No infiltrate is seen.Electronically signed by: DEIDRA KIM (May 13, 2020 20:48:05)
[2020-05-13 20:50] LABS: ABG ALLEN TEST POS; ABG HCO3 12.9 mmol/L (22-26)
[2020-05-13 21:07] LABS: ALBUMIN 3.2 g/dL (3.4-5.0); CALCIUM 9.3 mg/dL (8.5-10.1); CARBON DIOXIDE 16.6 mmol/L (21-32); COR CA(FOR HYPOALB) 9.9 mg/dL (8.5-10.1); CREATININE 1.98 mg/dL (0.70-1.30); TOTAL PROTEIN 7.1 g/dL (6.4-8.2)
[2020-05-13 21:23] LABS: BAND NEUTROPHILS % 8 % (0-10); PLATELET MORPHOLOGY COMMENT NORMAL (NORMAL)
[2020-05-13] MEDS ORDERED: NS 1000 ML 1,000 ML ONE (23:43)
[2020-05-13] MEDS ORDERED: ZITHROMAX INJ 500 MG VIAL IV ONE (23:43)
[2020-05-13] MEDS ORDERED: NS 250 ML IV 250 ML IV ONE (23:45)
[2020-05-13] MEDS: NS 1000 ML 1,000 ML IV SCH (23:56)
[2020-05-13] MEDS ORDERED: TYLENOL 500 MG TAB EXTRA STRENGTH PO STA (23:56)
[2020-05-13] MEDS ORDERED: TYLENOL 500 MG TAB EXTRA STRENGTH PO ONE (23:57)
[2020-05-14] MEDS ORDERED: ZITHROMAX INJ 500 MG VIAL 500 MG in NS 250 ML IV 250 ML IV SCH ×2
[2020-05-14 02:00] VITALS: BMI 29.5
[2020-05-14] MEDS ORDERED: ASCORBIC ACID INJ MULTI-DOSE VIAL 1,500 MG in NS 100 ML IV 100 ML IV SCH (03:00)
[2020-05-14 06:12] LABS: ALBUMIN 2.9 g/dL (3.4-5.0); CALCIUM 9.3 mg/dL (8.5-10.1); CARBON DIOXIDE 15.7 mmol/L (21-32); COR CA(FOR HYPOALB) 10.2 mg/dL (8.5-10.1); CREATININE 2.26 mg/dL (0.70-1.30); TOTAL PROTEIN 7.1 g/dL (6.4-8.2)
[2020-05-14 06:26] LABS: BASOPHILS % (AUTO) 0.6 % (0.2-1.0); HEMATOCRIT 31.2 % (42.0-54.0); HEMOGLOBIN 10.4 g/dL (13.5-18.0); LYMPHOCYTES # (AUTO) 0.4 X10^3/uL (1.3-2.9); LYMPHOCYTES % (AUTO) 22.9 % (21.0-51.0); MEAN CORPUSCULAR HEMOGLOBIN 29.2 pg (27.0-34.0); MEAN CORPUSCULAR HGB CONC 33.3 g/dL (33.0-35.0); MEAN CORPUSCULAR VOLUME 87.8 fL (80.0-100.0); MEAN PLATELET VOLUME 8.3 fL (7.4-11.0); MONOCYTES # (AUTO) 0.2 x10^3/uL (0.3-0.8); MONOCYTES % (AUTO) 12.6 % (0.0-13.0); NEUTROPHILS # (AUTO) 1.2 x10^3/uL (2.2-4.8); NEUTROPHILS % (AUTO) 63.9 % (42.0-75.0); PLATELET COUNT 230 X10^3/uL (150.0-450.0); RED BLOOD COUNT 3.55 X10^6/uL (4.7-6.0)
[2020-05-14 06:29] LABS: WHITE BLOOD COUNT 1.9 X10^3/uL (3.6-10.0)
[2020-05-14 07:30] LABS: BAND NEUTROPHILS % 6 % (0-10); PLATELET MORPHOLOGY COMMENT NORMAL (NORMAL)
[2020-05-14] MEDS ORDERED: ZOFRAN INJ 4 MG VIAL IVP PRN (07:58)
[2020-05-14] MEDS ORDERED: OFIRMEV IV 1000 MG VIAL 1,000 MG/100 ML VIAL IV ONE (08:27)
[2020-05-14] MEDS ORDERED: PLAQUENIL PO SCH (09:00)
[2020-05-14] MEDS ORDERED: DECADRON TAB PO SCH (09:00)
[2020-05-14] MEDS ORDERED: REMDESIVIR (INVESTIGATIONAL DRUG GS-5734) 200 MG in NS 250 ML IV 250 ML IV NR (09:00)
[2020-05-14] MEDS ORDERED: VITAMIN D (1.25MG) PO SCH (09:00)
[2020-05-14] MEDS ORDERED: TRICOR TAB 160 MG PO SCH (09:00)
[2020-05-14] MEDS ORDERED: LOVENOX INJ 30 MG SYR SC SCH (09:00)
[2020-05-14] MEDS ORDERED: VITAMIN A PO SCH (09:00)
[2020-05-14] MEDS: ZINC SULFATE PO SCH ×2 (09:10→21:00)
[2020-05-14] MEDS: LOVENOX INJ 30 MG SYR SC SCH (09:10)
[2020-05-14] MEDS: OFIRMEV IV 1000 MG VIAL 1,000 MG/100 ML VIAL IV PRN (09:11)
[2020-05-14] MEDS: PROTONIX INJ 40 MG VIAL IVP SCH ×2 (09:30→21:00)
[2020-05-14] MEDS: ROBITUSSIN DM PO SCH ×4 (09:31→21:00)
[2020-05-14] MEDS: TUSSIONEX PENNKINETIC SUSP PO SCH ×2 (09:31→21:00)
[2020-05-14] MEDS: LEVAQUIN PREMIX IV 750 MG 750 MG/150 ML BAG IV SCH (09:32)
[2020-05-14] MEDS: PEPCID 20 MG IV PREMIX* 20 MG/50 ML BAG IV SCH (09:34)
[2020-05-14] MEDS ORDERED: NEUPOGEN INJ 480 MCG SC NR (10:15)
[2020-05-14] MEDS: MUCOMYST (RESPIRATORY USE ONLY) NEB SCH ×2 (11:27→21:24)
[2020-05-14] MEDS: DUONEB 0.5 MG/3 MG (3 mL) NEB SCH ×4 (11:27→21:24)
[2020-05-14] MEDS: PULMICORT NEB TX 0.5 MG NEB SCH ×2 (11:28→21:23)
--- NOTE | 2020-05-14 11:46 | DR.H&P ---
H&P - History & Physical for Day of: H&P Date: 05/13/20 - Chief Complaint Chief Complaint: COUGH, SOB, WEAKNESS, INCREASED HR - History of Present Illness History of Present Illness: IS A 84 YEAR OLD PATIENT OF OURS. HE PRESENTED TO THE ER WITH SHORTNESS OF BREATH, COUGH, WEAKNESS, INCREASED RESPIRATORY EFFORTS, AND INCREASED HEART RATE. HE TESTED POSITIVE FOR COVID-19 ON 05/09/20. HIS HEART RATE HAS BEEN 140s-150s AT HOME AND HIS RESPIRATORY RATE HAS BEEN IN THE 30s. HE HAS BEEN TAKING AZITHROMYCIN 250MG PO DAILY, A MEDROL DOSEPACK, AND PLAQUENIL 200MG PO BID SINCE 05/08/20 WITHOUT IMPROVEMENT IN SYMPTOMS. HE DENIES IMPROVEMENT IN SYMPTOMS DESPITE COMPLIANCE WITH MEDICATIONS. HIS PMH INCLUDES: ARTHRITIS, DEMENTIA, DIABETES, DYSLIPIDEMIA, AND HYPERTENSION. AUSCULTATION OF LUNG RG REVEALED SCATTERED WHEEZING. ON ARRIVAL TO THE ER, VITALS WERE 005-400-91-91%RA-140/73. HE WAS PLACED ON NASAL CANNULA AT 2L/MIN. LABS WERE OBTAINED. ABNORMAL LAB VALUES INCLUDE THE FOLLOWING: WBC 1.0, RBC 3.55, HGB 10.3, HCT 30.6, CARBON DIOXIDE 16.6, BUN 45, CREATININE 1.98, GLUCOSE 323, AST 14, CRP 121.20, ALBUMIN 3.2. BLOOD CULTURES WERE SET UP. A CHEST XRAY WAS OBTAINED AND REVEALED: Mild discoid atelectasis or scarring along the lung bases which is less prominent with a questionable tiny effusion or pleural thickening along the left lung base laterally which is decreased. No infiltrate is seen. HE WAS ADMITTED TO THE HOSPITAL FOR FURTHER EVALUATION AND TREATMENT OF PNEUMONIA DUE TO COVID-19, HYPOXIA, AND LEUKOPENIA. HE WAS STARTED ON NS AT 100 ML/HR, LEVAQUIN 750MG IV Q48H, REMDESIVIR 200MG IV X 1 DOSE, THEN 100MG IV COY LY, SOLU-MEDROL 80MG IV Q8H, DUONEBS QID, PULMICORT NEBS BID, MUCOMYST IN NEBS BID, TUSSIONEX 5ML PO Q12H, ROBITUSSIN DM 10ML PO QID, HUMULIN R SLIDING SCALE, PEPCID IV, PROTONIX IV, AND LOVENOX 30MG SC DAILY. WE WILL REVIEW HIS HOME MEDICATIONS. OTHERWISE, WE WILL FOLLOW UP WITH AM LABS, CHEST XRAY, ABG, AND CONTINUE TO MONITOR. - Past Medical History Past Medical History: Hypertension, Dyslipidemia, Diabetes, Dementia, Arthritis Additional Medical History: prostate cancer, BPH, - Past Surgical History Surgical History: Other Additional Surgical History: hernia repair - Family History Family Medical History: SC, Hypertension - Social History Does patient currently use any type of tobacco product: No Have you used tobacco products in the last 12 months: No Type of Tobacco Use: None Does any household member use tobacco: No Alcohol Use: None Drug Use: None - Medications Home Medications: No Known Drug Allergies Allergy (Verified 09/06/17 12:36) CONTINUE taking the following medications acyclovir 400 mg PO BID 05/13/20 [History] ascorbic acid (vitamin C) [Vitamin C With Monica Hips] 2 g PO DAILY 05/13/20 [History] aspirin [Aspir-81] 81 mg PO DAILY 05/13/20 [History] benzonatate 200 mg PO TID 05/13/20 [History] cetirizine 10 mg PO DAILY 05/13/20 [History] cholecalciferol (vitamin D3) [Vitamin D3] 250 mcg PO DAILY 05/13/20 [History] clonazepam 1 mg PO QHS 05/13/20 [History] clopidogrel 75 mg PO DAILY 05/13/20 [History] donepezil 5 mg PO DAILY 05/13/20 [History] ferrous sulfate 324 mg PO DAILY 05/13/20 [History] hydroxychloroquine 200 mg PO DAILY 05/13/20 [History] lisinopril 10 mg PO DAILY 05/13/20 [History] megestrol 40 mg PO BID 05/13/20 [History] metformin 500 mg PO BID 05/13/20 [History] methylprednisolone [Methylpred DP] 4 mg PO DIRECTED 05/13/20 [History] tamsulosin 0.8 mg PO DAILY 05/13/20 [History] vitamin B comp and C no.3 1 cap PO DAILY 05/13/20 [History] vitamin [id number] acid 1 tab PO QAM 05/13/20 [History] - Review of Systems Constitutional: See HPI, Weakness Eyes: No Symptoms Reported ENT: No Symptoms Reported Respiratory: See HPI, Cough, Shortness of Breath, SOB with Excertion, Wheezing Cardiovascular: No Symptoms Reported Gastrointestinal: No Symptoms Reported Genitourinary: No Symptoms Reported Musculoskeletal: No Symptoms Reported Skin: No Symptoms Reported Neurological: Weakness - Physical Exam Vital Signs: Temperature 101 F Pulse Rate [Left Brachial] 114 Pulse Rate 124 Respiratory Rate 22 Blood Pressure [Left Arm] 130/58 Blood Pressure 130/71 O2 Sat by Pulse Oximetry 97 Oriented: Normal Eyes: Normal Ear: Normal Nose: Normal Throat: Normal Respiratory: Wheezes Throughout Cardiovascular: Tachycardia : Normal Auscultation: Bowel Sounds: Normal Palpation: Normal Tenderness: Normal Skin: Normal Musculoskeletal: Normal Psychiatric: Normal Mood Description: Calm Affect: Normal Speech Pattern: Clear - Assessment/Plan (1) Pneumonia due to COVID-19 virus Status: Acute Plan: ADMIT, NS AT 100 ML/HR, LEVAQUIN 750MG IV Q48H, REMDESIVIR 200MG IV X 1 DOSE, THEN 100MG IV DAILY, SOLU-MEDROL 80MG IV Q8H, DUONEBS QID, PULMICORT NEBS BID, MUCOMYST IN NEBS BID, TUSSIONEX 5ML PO Q12H, ROBITUSSIN DM 10ML PO QID, HUMULIN R SLIDING SCALE, PEPCID IV, PROTONIX IV, AND LOVENOX 30MG SC DAILY. WE WILL REVIEW HIS HOME MEDICATIONS. (2) Hypoxia Status: Acute (3) Leukopenia Qualifiers: Leukopenia type: lymphocytopenia Qualified Code(s): D72.810 - Lymphocytopenia Status: Acute (4) Dyspnea Qualifiers: Dyspnea type: acute respiratory distress Qualified Code(s): R06.03 - Acute respiratory distress Status: Acute (5) Diabetes mellitus, type 2 Qualifiers: Diabetes mellitus [facility] insulin use: with [facility] use Diabetes mellitus complication status: without complication Qualified Code(s): E11.9 - Type 2 diabetes mellitus without complications; Z79.4 - manager terminal (current) use of insulin Status: Chronic - Allergies Allergies/Adverse Reactions: Allergies Allergy/AdvReac Type Severity Reaction Status Date / Time No Known Drug Allergies Allergy Verified 09/06/17 12:36
[2020-05-14] MEDS ORDERED: ZESTRIL TAB 10 MG ONE (11:59)
[2020-05-14] MEDS ORDERED: PLAVIX ONE (11:59)
[2020-05-14] MEDS ORDERED: FERROUS GLUCONATE PO ONE (12:00)
[2020-05-14] MEDS ORDERED: VITAMIN B COMP AND C NO 3 PO SCH (12:00)
[2020-05-14] MEDS ORDERED: GLUCOPHAGE XR 24-HR PO ONE (12:00)
[2020-05-14] MEDS ORDERED: TESSALON PERLES PO ONE (12:00)
[2020-05-14] MEDS ORDERED: ARICEPT TAB 5 MG ONE (12:00)
[2020-05-14] MEDS ORDERED: VITAMIN D3 125 mcg (5,000 UNITS) PO ONE (12:01)
[2020-05-14] MEDS ORDERED: MEGACE PO ONE (12:01)
[2020-05-14] MEDS ORDERED: SOLU-Medrol 40 MG VIAL ONE (12:01)
[2020-05-14] MEDS ORDERED: ZyrTEC TAB 10 MG ONE (12:01)
[2020-05-14] MEDS: VITAMIN D3 125 mcg (5,000 UNITS) PO SCH (13:07)
[2020-05-14] MEDS: PLAVIX PO SCH (13:07)
[2020-05-14] MEDS: ZyrTEC TAB 10 MG PO SCH (13:08)
[2020-05-14] MEDS: ZESTRIL TAB 10 MG PO SCH ×2 (13:09→13:51)
[2020-05-14] MEDS: FERROUS GLUCONATE PO SCH (13:10)
[2020-05-14] MEDS: ARICEPT TAB 5 MG PO SCH (13:10)
[2020-05-14] MEDS: MEGACE PO SCH ×2 (13:11→21:00)
[2020-05-14] MEDS: SOLU-Medrol 40 MG VIAL IVP SCH ×2 (13:12→22:50)
[2020-05-14] MEDS: TESSALON PERLES PO SCH ×2 (13:12→22:50)
[2020-05-14] MEDS: GLUCOPHAGE XR 24-HR PO SCH (13:14)
[2020-05-14] MEDS: TAB-A-VITE PO SCH (14:25)
[2020-05-14] MEDS: HumuLIN R SUBCUT PRN ×2 (17:20→21:00)
[2020-05-14] MEDS: SNACK - Diabetic Appropriate PO SCH (20:00)
[2020-05-14] MEDS: ZOCOR TAB 20 MG PO SCH (21:00)
[2020-05-14] MEDS: KLONOPIN TAB 1 MG PO SCH (21:00)
[2020-05-14] MEDS: NS 1000 ML 1,000 ML IV SCH (23:20)
[2020-05-15] MEDS: OFIRMEV IV 1000 MG VIAL 1,000 MG/100 ML VIAL IV PRN (03:15)
[2020-05-15] MEDS: NS 1000 ML 1,000 ML IV SCH (04:00)
[2020-05-15 05:49] LABS: ABG BASE EXCESS -10.7 mmol/L (-2.0-2.0)
[2020-05-15 06:10] LABS: ABG ALLEN TEST POSS; ABG HCO3 12.1 mmol/L (22-26)
--- NOTE | 2020-05-15 06:14 | RAD ---
HISTORYSOBSTUDYCHEST, 1 [id number]/01/2020TECHNIQUEAP view of the chestFINDINGSCardiac silhouette is enlarged. There is interval worsening of the appearance of the lungs now with diffuse bilateral airspace disease. Suspect small pleural effusions. No pneumothorax.IMPRESSIONWorsening in appearance of the lungs with now diffuse bilateral airspace disease. This could be due to pulmonary edema or pneumonia.Electronically signed by: Figueroa Foote (May 15, 2020 06:13:44)
[2020-05-15] MEDS: SOLU-Medrol 40 MG VIAL IVP SCH ×3 (06:19→21:23)
[2020-05-15] MEDS: TESSALON PERLES PO SCH ×3 (06:20→21:23)
[2020-05-15] MEDS: HumuLIN R SUBCUT PRN ×4 (06:21→21:50)
[2020-05-15 06:45] LABS: ALBUMIN 2.1 g/dL (3.4-5.0); CALCIUM 8.1 mg/dL (8.5-10.1); CARBON DIOXIDE 15.8 mmol/L (21-32); COR CA(FOR HYPOALB) 9.6 mg/dL (8.5-10.1); CREATININE 2.26 mg/dL (0.70-1.30); TOTAL PROTEIN 6.1 g/dL (6.4-8.2)
[2020-05-15 06:49] LABS: BASOPHILS % (AUTO) 0.4 % (0.2-1.0); EOSINOPHILS % (AUTO) 0.1 % (0.9-2.9); HEMATOCRIT 25.3 % (42.0-54.0); LYMPHOCYTES # (AUTO) 0.1 X10^3/uL (1.3-2.9); LYMPHOCYTES % (AUTO) 5.9 % (21.0-51.0); MEAN CORPUSCULAR HEMOGLOBIN 29.1 pg (27.0-34.0); MEAN CORPUSCULAR HGB CONC 33.4 g/dL (33.0-35.0); MEAN CORPUSCULAR VOLUME 87.1 fL (80.0-100.0); MEAN PLATELET VOLUME 8.2 fL (7.4-11.0); MONOCYTES # (AUTO) 0.2 x10^3/uL (0.3-0.8); MONOCYTES % (AUTO) 16.9 % (0.0-13.0); NEUTROPHILS # (AUTO) 0.8 x10^3/uL (2.2-4.8); NEUTROPHILS % (AUTO) 76.7 % (42.0-75.0); PLATELET COUNT 127 X10^3/uL (150.0-450.0); RED CELL DISTRIBUTION WIDTH 15.7 % (11.6-16.5)
[2020-05-15 06:54] LABS: HEMOGLOBIN 8.4 g/dL (13.5-18.0)
[2020-05-15] MEDS ORDERED: GLUCOPHAGE XR 24-HR PO ONE (07:38)
[2020-05-15] MEDS ORDERED: REMDESIVIR (INVESTIGATIONAL DRUG GS-5734) IV ONE (07:38)
[2020-05-15] MEDS ORDERED: NS 250 ML IV 250 ML IV ONE (07:39)
[2020-05-15 07:54] LABS: BAND NEUTROPHILS % 4 % (0-10)
[2020-05-15 07:55] LABS: HYPOCHROMASIA SLIGHT; PLATELET MORPHOLOGY COMMENT NORMAL (NORMAL)
[2020-05-15] MEDS ORDERED: VITAMIN A PO SCH (09:00)
[2020-05-15] MEDS ORDERED: VITAMIN B12 FOLIC ACID PO SCH (09:00)
[2020-05-15] MEDS ORDERED: VITAMIN D3 125 mcg (5,000 UNITS) PO SCH (09:00)
[2020-05-15] MEDS: ARICEPT TAB 5 MG PO SCH (09:06)
[2020-05-15] MEDS: GLUCOPHAGE XR 24-HR PO SCH ×2 (09:07→20:42)
[2020-05-15] MEDS: FERROUS GLUCONATE PO SCH (09:07)
[2020-05-15] MEDS: ROBITUSSIN DM PO SCH ×4 (09:08→20:44)
[2020-05-15] MEDS: MEGACE PO SCH ×2 (09:09→20:43)
[2020-05-15] MEDS: PEPCID 20 MG IV PREMIX* 20 MG/50 ML BAG IV SCH (09:09)
[2020-05-15] MEDS: VITAMIN C PO SCH (09:09)
[2020-05-15] MEDS: TAB-A-VITE PO SCH (09:10)
[2020-05-15] MEDS: PROTONIX INJ 40 MG VIAL IVP SCH ×2 (09:10→20:44)
[2020-05-15] MEDS: ZINC SULFATE PO SCH ×2 (09:11→20:45)
[2020-05-15] MEDS: VITAMIN D3 125 mcg (5,000 UNITS) PO SCH (09:11)
[2020-05-15] MEDS: TUSSIONEX PENNKINETIC SUSP PO SCH ×2 (09:12→20:45)
[2020-05-15] MEDS: ZyrTEC TAB 10 MG PO SCH (09:13)
[2020-05-15] MEDS: REMDESIVIR (INVESTIGATIONAL DRUG GS-5734) 100 MG in NS 250 ML IV 250 ML IV SCH (09:13)
[2020-05-15] MEDS: MUCOMYST (RESPIRATORY USE ONLY) NEB SCH ×2 (09:30→20:50)
[2020-05-15] MEDS: PULMICORT NEB TX 0.5 MG NEB SCH ×2 (09:30→20:50)
[2020-05-15] MEDS: DUONEB 0.5 MG/3 MG (3 mL) NEB SCH ×4 (09:30→20:50)
[2020-05-15] MEDS: PLAVIX PO SCH (09:58)
[2020-05-15] MEDS: ZESTRIL TAB 10 MG PO SCH (13:10)
[2020-05-15] MEDS ORDERED: TYLENOL 325 MG TAB PO ONE ×2 (16:01→16:50)
[2020-05-15] MEDS ORDERED: BENADRYL INJ 50 MG VIAL IVP ONE (16:02)
[2020-05-15] MEDS ORDERED: BENADRYL INJ 50 MG VIAL ONE (16:50)
[2020-05-15] MEDS: KLONOPIN TAB 1 MG PO SCH (20:42)
[2020-05-15] MEDS: SNACK - Diabetic Appropriate PO SCH (20:42)
[2020-05-15] MEDS: ZOCOR TAB 20 MG PO SCH (20:45)
[2020-05-16] MEDS: NS 1000 ML 1,000 ML IV SCH ×3 (00:36→22:29)
[2020-05-16] MEDS: TESSALON PERLES PO SCH ×3 (05:48→22:29)
[2020-05-16] MEDS: SOLU-Medrol 40 MG VIAL IVP SCH ×3 (05:49→21:45)
--- NOTE | 2020-05-16 06:21 | RAD ---
HISTORYSOBSTUDYCHEST, 1 [id number]/03/2020TECHNIQUEAP view of the chestFINDINGSCardiac silhouette is enlarged. No significant change in bilateral airspace disease worst in the perihilar region. There are diffuse bilateral interstitial opacities as well. Small pleural effusions appear similar. No pneumothorax.IMPRESSIONNo significant change.Electronically signed by: Figueroa Foote (May 16, 2020 06:20:25)
[2020-05-16 06:40] LABS: BASOPHILS % (AUTO) 0.3 % (0.2-1.0); EOSINOPHILS % (AUTO) 0.3 % (0.9-2.9); HEMATOCRIT 33.2 % (42.0-54.0); HEMOGLOBIN 10.6 g/dL (13.5-18.0); LYMPHOCYTES # (AUTO) 0.1 X10^3/uL (1.3-2.9); LYMPHOCYTES % (AUTO) 4.4 % (21.0-51.0); MEAN CORPUSCULAR HEMOGLOBIN 28.8 pg (27.0-34.0); MEAN CORPUSCULAR HGB CONC 31.8 g/dL (33.0-35.0); MEAN CORPUSCULAR VOLUME 90.7 fL (80.0-100.0); MEAN PLATELET VOLUME 8.9 fL (7.4-11.0); MONOCYTES # (AUTO) 0 x10^3/uL (0.3-0.8); MONOCYTES % (AUTO) 0.5 % (0.0-13.0); NEUTROPHILS # (AUTO) 2.3 x10^3/uL (2.2-4.8); NEUTROPHILS % (AUTO) 94.5 % (42.0-75.0); PLATELET COUNT 161 X10^3/uL (150.0-450.0); RED BLOOD COUNT 3.66 X10^6/uL (4.7-6.0); RED CELL DISTRIBUTION WIDTH 16.5 % (11.6-16.5); WHITE BLOOD COUNT 2.5 X10^3/uL (3.6-10.0)
[2020-05-16] MEDS: HumuLIN R SUBCUT PRN (06:41)
[2020-05-16 06:49] LABS: ALANINE AMINOTRANSFERASE 187 Units/L (12-78); ALBUMIN 2.2 g/dL (3.4-5.0); ALKALINE PHOSPHATASE 72 Units/L (46-116); ASPARTATE AMINO TRANSFERASE 261 Units/L (15-37); BLOOD UREA NITROGEN 63 mg/dL (7-18); CALCIUM 8.4 mg/dL (8.5-10.1); CHLORIDE 113 mmol/L (98-107); COR CA(FOR HYPOALB) 9.8 mg/dL (8.5-10.1); COR NA(FOR HYPERGLY) 148 mmol/L (136-145); CREATININE 3.14 mg/dL (0.70-1.30); SODIUM 145 mmol/L (136-145); TOTAL PROTEIN 6.8 g/dL (6.4-8.2); eGFR NON BLACK RACES 20 (>60)
[2020-05-16 06:55] LABS: CARBON DIOXIDE 11.3 mmol/L (21-32)
[2020-05-16 07:45] LABS: BAND NEUTROPHILS % 20 % (0-10); HYPOCHROMASIA SLIGHT; METAMYELOCYTES % 8; PLATELET MORPHOLOGY COMMENT NORMAL (NORMAL)
[2020-05-16] MEDS: PEPCID 20 MG IV PREMIX* 20 MG/50 ML BAG IV SCH (08:24)
[2020-05-16] MEDS: PROTONIX INJ 40 MG VIAL IVP SCH ×2 (08:25→21:46)
[2020-05-16 08:51] LABS: ABG BASE EXCESS -15.6 mmol/L (-2.0-2.0)
--- NOTE | 2020-05-16 08:52 | PCM.PROG ---
Progress Note - Progress Note for Day of Date of Exam: 05/15/20 - Subjective Subjective: IS BEING TREATED FOR PNEUMONIA DUE TO COVID-19, HYPOXIA, AND LEUKOPENIA. TODAY, HE IS ALERT AND ORIENTED, LYING IN BED ON MORNING ROUNDS. HE CONTINUES WITH COUGH, SHORTNESS OF BREATH, AND WEAKNESS TODAY. STAFF REPORTS THAT HE HAS BEEN AGITATED AND CONFUSED THROUGHOUT THE NIGHT. HE IS CURRENTLY ON ROOM AIR. ON EXAMINATION, HEART IS REGULAR IN RATE AND RHYTHM. BILATERAL LUNGS ARE NOTED WITH SCATTERED WHEEZING THROUGHOUT. ABDOMEN IS ROUND, SOFT, AND NON- TENDER WITH NORMAL BOWEL SOUNDS NOTED IN ALL QUADRANTS. HER VITALS THIS MORNING ARE 97.9-90-20-96%-131/59. LABS WERE OBTAINED. ABNORMAL LAB VALUES INCLUDE THE FOLLOWING: WBC 1.0, RBC 2.90, HGB 8.4, HCT 25.3, PLT COUNT 127, CHLORIDE 111, CARBON DIOXIDE 15.8, BUN 52, CREATININE 2.26, GLUCOSE 193, CALCIUM 8.1, FERRITIN 4236, CRP 442, TOTAL PROTEIN 6.1, ALBUMIN 2.1. BLOOD CULTURES ARE PENDING. AN ABG WAS OBTAINED AND REVEALED: PH 7.390, PC02 20, P02 67, HC03 12.1, 02 SAT 93, BASE EXCESS -10.7, FI02 28. A CHEST XRAY WAS OBTAINED AND REVEALED: Worsening in appearance of the lungs with now diffuse bilateral airspace disease. This could be due to pulmonary edema or pneumonia. SHE IS CURRENTLY RECEIVING NS AT 100 ML/HR, LEVAQUIN 750MG IV Q48H, REMDESIVIR 100 IV DAILY, PEPCID 20MG IV DAILY, PROTONIS 40MG IV BID, SOLU-MEDROL 80MG IV Q8H, DUONEBS QID, TESSALON PERLES TID, TUSSIONEX 5ML PO Q12H, ZOFRAN IV, AND HOME MEDICATIONS WERE RESUMED. WE WILL CONTINUE WITH CURRENT PLAN OF CARE TODAY. OTHERWISE, WE PLAN TO FOLLOW UP WITH AM LABS AND CONTINUE TO MONITOR. - Past Medical Family Social History Past Med/Fam/Surg Hx: No changes since H&P Allergies: Allergies No Known Drug Allergies Allergy (Verified 09/06/17 12:36) - Review of Systems ROS: No change since H&P - Vital Signs and I&O's Vital Signs: Temperature 99.8 F Pulse Rate [Left Brachial] 136 Pulse Rate 88 Respiratory Rate 28 Blood Pressure [Left Arm] 95/52 Blood Pressure 130/71 O2 Sat by Pulse Oximetry 98 Intake and Output: Intake & Output 05/13/20 05/14/20 05/15/20 05/16/20 11:59 11:59 11:59 11:59 Intake Total 598 / 598 4905 / 4905 2498 / 2498 Balance 598 / 598 4905 / 4905 2498 / 2498 - Physical Exam Oriented: Normal Eyes: Normal Ear: Normal Nose: Normal Throat: Normal Respiratory: Generalized, Wheezes Cardiovascular: Normal : Normal Auscultation: Bowel Sounds: Normal Palpation: Normal Tenderness: Normal Skin: Normal Musculoskeletal: Normal Psychiatric: Normal Mood Description: Calm Affect: Normal Speech Pattern: Clear, Appropriate - Laboratory and Diagnostics Result Diagrams: 05/16/20 05:20 05/16/20 05:20 Labs: 05/13/20 23:54 Blood Blood Culture - Preliminary 05/13/20 20:35 Blood Blood Culture - Preliminary Laboratory WBC 2.5 X10^3/uL (3.6-10.0) L 05/16/20 05:20 RBC 3.66 X10^6/uL (4.7-6.0) L 05/16/20 05:20 Hgb 10.6 g/dL (13.5-18.0) L D 05/16/20 05:20 Hct 33.2 % (42.0-54.0) L 05/16/20 05:20 MCV 90.7 fL (80.0-100.0) 05/16/20 05:20 MCH 28.8 pg (27.0-34.0) 05/16/20 05:20 MCHC 31.8 g/dL (33.0-35.0) L 05/16/20 05:20 RDW 16.5 % (11.6-16.5) 05/16/20 05:20 Plt Count 161 X10^3/uL (150.0-450.0) 05/16/20 05:20 Plt Count Comment Adequate (ADEQUATE) 05/16/20 05:20 MPV 8.9 fL (7.4-11.0) 05/16/20 05:20 Neut % (Auto) 94.5 % (42.0-75.0) H 05/16/20 05:20 Lymph % (Auto) 4.4 % (21.0-51.0) L 05/16/20 05:20 Caldwell % (Auto) 0.5 % (0.0-13.0) 05/16/20 05:20 Eos % (Auto) 0.3 % (0.9-2.9) L 05/16/20 05:20 Baso % (Auto) 0.3 % (0.2-1.0) 05/16/20 05:20 Neut # (Auto) 2.3 x10^3/uL (2.2-4.8) 05/16/20 05:20 Lymph # (Auto) 0.1 X10^3/uL (1.3-2.9) L 05/16/20 05:20 Caldwell # (Auto) 0 x10^3/uL (0.3-0.8) L 05/16/20 05:20 Eos # (Auto) 0.0 x10^3/uL (0.0-0.2) 05/16/20 05:20 Baso # (Auto) 0.0 X10^3/uL (0.0-0.1) 05/16/20 05:20 Absolute Nucleated RBC 0.2 /100WBC 05/16/20 05:20 Total Counted 100 05/16/20 05:20 Neutrophils % (Manual) 60 % (39-76) 05/16/20 05:20 Band Neutrophils % 20 % (0-10) H 05/16/20 05:20 Lymphocytes % (Manual) 10 % (13-43) L 05/16/20 05:20 Monocytes % (Manual) 2 % (4-9) L 05/16/20 05:20 Metamyelocytes % 8 05/16/20 05:20 Plt Morphology Comment Normal (NORMAL) 05/16/20 05:20 RBC Morphology Abnormal (NORMAL) 05/16/20 05:20 Hypochromasia Slight A 05/16/20 05:20 Sample Site R rad 05/15/20 05:40 ABG pH 7.390 (7.35-7.45) 05/15/20 05:40 ABG pCO2 20.0 mmHg (35.0-45.0) L 05/15/20 05:40 ABG pO2 67.0 mmHg (80.0-100.0) L 05/15/20 05:40 ABG HCO3 12.1 mmol/L (22-26) L* 05/15/20 05:40 ABG O2 Saturation 93.0 % (90-100) 05/15/20 05:40 ABG Base Excess -10.7 mmol/L (-2.0-2.0) L 05/15/20 05:40 Calixto Test Poss 05/15/20 05:40 A-a Gradient 58.0 mmHg 05/15/20 05:40 FiO2 21.0 05/15/20 05:40 Blood Gas Comments Mariana well kb 05/15/20 05:40 Sodium 145 mmol/L (136-145) 05/16/20 05:20 Corrected Sodium 148 mmol/L (136-145) H 05/16/20 05:20 Potassium 5.3 mmol/L (3.5-5.1) H 05/16/20 05:20 Chloride 113 mmol/L (98-107) H 05/16/20 05:20 Carbon Dioxide 11.3 mmol/L (21-32) L* 05/16/20 05:20 BUN 63 mg/dL (7-18) H 05/16/20 05:20 Creatinine 3.14 mg/dL (0.70-1.30) H 05/16/20 05:20 Est GFR (MDRD) Af Amer 25 (>60) L 05/16/20 05:20 Est GFR (MDRD) Non-Af 20 (>60) L 05/16/20 05:20 Glucose 207 mg/dL (65-99) H 05/16/20 05:20 POC Glucose (mg/dL) 170 mg/dL (65-99) H 05/16/20 06:21 Calcium 8.4 mg/dL (8.5-10.1) L 05/16/20 05:20 Corrected Calcium 9.8 mg/dL (8.5-10.1) 05/16/20 05:20 Ferritin > 40824 ng/mL (26-388) H 05/16/20 05:20 Total Bilirubin 0.50 mg/dL (0.2-1.0) 05/16/20 05:20 AST 261 Units/L (15-37) H 05/16/20 05:20 ALT 187 Units/L (12-78) H 05/16/20 05:20 Alkaline Phosphatase 72 Units/L (46-116) 05/16/20 05:20 Troponin I < 0.02 ng/mL (0-1.5) 05/13/20 20:44 C-Reactive Protein 513.10 mg/L (0-3.0) H 05/16/20 05:20 Total Protein 6.8 g/dL (6.4-8.2) 05/16/20 05:20 Albumin 2.2 g/dL (3.4-5.0) L 05/16/20 05:20 Globulin 4.6 g/dL (2.5-4.5) H 05/16/20 05:20 Albumin/Globulin Ratio 0.5 Ratio (1.1-2.1) L 05/16/20 05:20 Blood Type O NEGATIVE 05/14/20 08:49 - Plan (1) Pneumonia due to COVID-19 virus Status: Acute Plan: NS AT 100 ML/HR, LEVAQUIN 750MG IV Q48H, REMDESIVIR 200MG IV X 1 DOSE, TH EN 100MG IV DAILY, SOLU-MEDROL 80MG IV Q8H, DUONEBS QID, PULMICORT NEBS BID, MUCOMYST IN NEBS BID, TUSSIONEX 5ML PO Q12H, ROBITUSSIN DM 10ML PO QID, HUMULIN R SLIDING SCALE, PEPCID IV, PROTONIX IV, AND LOVENOX 30MG SC DAILY. WE WILL REVIEW HIS HOME MEDICATIONS. (2) Hypoxia Status: Acute (3) Leukopenia Status: Acute Qualifiers: Leukopenia type: lymphocytopenia Qualified Code(s): D72.810 - Lymphocytopenia (4) Dyspnea Status: Acute Qualifiers: Dyspnea type: acute respiratory distress Qualified Code(s): R06.03 - Acute respiratory distress (5) Diabetes mellitus, type 2 Status: Chronic Qualifiers: Diabetes mellitus exterminator helper insulin use: with group home use Diabetes mellitus complication status: without complication Qualified Code(s): E11.9 - Type 2 diabetes mellitus without complications; Z79.4 - nursing home (current) use of insulin
[2020-05-16 08:53] LABS: ABG ALLEN TEST POS; ABG HCO3 8.7 mmol/L (22-26)
[2020-05-16] MEDS: MUCOMYST (RESPIRATORY USE ONLY) NEB SCH ×2 (09:00→20:50)
[2020-05-16] MEDS: DUONEB 0.5 MG/3 MG (3 mL) NEB SCH ×4 (09:00→20:50)
[2020-05-16] MEDS: PULMICORT NEB TX 0.5 MG NEB SCH ×2 (09:00→20:50)
[2020-05-16] MEDS: REMDESIVIR (INVESTIGATIONAL DRUG GS-5734) 100 MG in NS 250 ML IV 250 ML IV SCH (10:00)
--- NOTE | 2020-05-16 10:30 | PCM.PROG ---
Progress Note - Progress Note for Day of Date of Exam: 05/16/20 - Subjective Subjective: IS BEING TREATED FOR PNEUMONIA DUE TO COVID-19, HYPOXIA, AND LEUKOPENIA. TODAY, HE IS ALERT AND ORIENTED, LYING IN BED ON MORNING ROUNDS. HE CONTINUES WITH COUGH, SHORTNESS OF BREATH, AND WEAKNESS TODAY. FAMILY REPORTS THAT BREATHING APPEARS TO BE MORE LABORED TODAY. STAFF REPORTS THAT HE CONTINUES WITH CONFUSION AND AGITATION AT TIMES. HE IS CURRENTLY ON THE BIPAP WITH PRESSURES 18/6. ON EXAMINATION, HEART IS REGULAR IN RATE AND RHYTHM. BILATERAL LUNGS ARE NOTED WITH SCATTERED WHEEZING THROUGHOUT. ABDOMEN IS ROUND, SOFT, AND NON-TENDER WITH NORMAL BOWEL SOUNDS NOTED IN ALL QUADRANTS. HER VITALS THIS MORNING ARE 99.8-136-28-98%BIPAP-95/52. LABS WERE OBTAINED. ABNORMAL LAB VALUES INCLUDE THE FOLLOWING: WBC 2.5, RBC 3.66, HGB 10.6, HCT 33.2, POTASSIUM 5.3, CHLORIDE 113, CARBON DIOXIDE 11.3, BUN 63, CREATININE 3.14, GLUCOSE 207, CALCIUM 8.4, FERRITIN >41773, AST 261, ALT 187, CRP 513.10, ALBUMIN 2.6, GLOBULIN 4.6. BLOOD CULTURES ARE PENDING. AN ABG WAS OBTAINED AND REVEALED: PH 7.390, PC02 20, P02 67, HC03 12.1, 02 SAT 93, BASE EXCESS -10.7, FI02 28. A CHEST XRAY WAS OBTAINED AND REVEALED: Cardiac silhouette is enlarged. No significant change in bilateral airspace disease worst in the perihilar region. There are diffuse bilateral interstitial opacities as well. Small pleural effusions appear similar. No pneumothorax. HE IS CURRENTLY RECEIVING NS AT 100 ML/HR, LEVAQUIN 750MG IV Q48H, REMDESIVIR 100 IV DAILY, PEPCID 20MG IV DAILY, PROTONIX 40MG IV BID, SOLU-MEDROL 80MG IV Q8H, DUONEBS QID, TESSALON PERLES TID, TUSSIONEX 5ML PO Q12H, ZOFRAN IV, AND HOME MEDICATIONS WERE RESUMED. WE WILL WEAN DOWN HIS OXYGEN SOME TODAY. OTHERWISE, WE WILL CONTINUE WITH CURRENT PLAN OF CARE TODAY. WE PLAN TO FOLLOW UP WITH AM LABS AND CONTINUE TO MONITOR. - Past Medical Family Social History Past Med/Fam/Surg Hx: No changes since H&P Allergies: Allergies No Known Drug Allergies Allergy (Verified 09/06/17 12:36) - Review of Systems ROS: No change since H&P - Vital Signs and I&O's Vital Signs: Temperature 99.8 F Pulse Rate [Left Brachial] 136 Pulse Rate 88 Respiratory Rate 28 Blood Pressure [Left Arm] 95/52 Blood Pressure 130/71 O2 Sat by Pulse Oximetry 98 Intake and Output: Intake & Output 05/13/20 05/14/20 05/15/20 05/16/20 11:59 11:59 11:59 11:59 Intake Total 598 / 598 4905 / 4905 2498 / 2498 Balance 598 / 598 4905 / 4905 2498 / 2498 - Physical Exam Oriented: Normal Eyes: Normal Ear: Normal Nose: Normal Throat: Normal Respiratory: Generalized, Wheezes Cardiovascular: Normal : Normal Auscultation: Bowel Sounds: Normal Palpation: Normal Tenderness: Normal Skin: Normal Musculoskeletal: Normal Psychiatric: Normal Mood Description: Calm Affect: Normal Speech Pattern: Clear, Appropriate - Laboratory and Diagnostics Result Diagrams: 05/16/20 05:20 05/16/20 05:20 Labs: 05/13/20 23:54 Blood Blood Culture - Preliminary 05/13/20 20:35 Blood Blood Culture - Preliminary Laboratory WBC 2.5 X10^3/uL (3.6-10.0) L 05/16/20 05:20 RBC 3.66 X10^6/uL (4.7-6.0) L 05/16/20 05:20 Hgb 10.6 g/dL (13.5-18.0) L D 05/16/20 05:20 Hct 33.2 % (42.0-54.0) L 05/16/20 05:20 MCV 90.7 fL (80.0-100.0) 05/16/20 05:20 MCH 28.8 pg (27.0-34.0) 05/16/20 05:20 MCHC 31.8 g/dL (33.0-35.0) L 05/16/20 05:20 RDW 16.5 % (11.6-16.5) 05/16/20 05:20 Plt Count 161 X10^3/uL (150.0-450.0) 09/04/20 05:20 Plt Count Comment Adequate (ADEQUATE) 05/16/20 05:20 MPV 8.9 fL (7.4-11.0) 05/16/20 05:20 Neut % (Auto) 94.5 % (42.0-75.0) H 05/16/20 05:20 Lymph % (Auto) 4.4 % (21.0-51.0) L 05/16/20 05:20 Lucas % (Auto) 0.5 % (0.0-13.0) 05/16/20 05:20 Eos % (Auto) 0.3 % (0.9-2.9) L 05/16/20 05:20 Baso % (Auto) 0.3 % (0.2-1.0) 05/16/20 05:20 Neut # (Auto) 2.3 x10^3/uL (2.2-4.8) 05/16/20 05:20 Lymph # (Auto) 0.1 X10^3/uL (1.3-2.9) L 05/16/20 05:20 Lucas # (Auto) 0 x10^3/uL (0.3-0.8) L 05/16/20 05:20 Eos # (Auto) 0.0 x10^3/uL (0.0-0.2) 05/16/20 05:20 Baso # (Auto) 0.0 X10^3/uL (0.0-0.1) 05/16/20 05:20 Absolute Nucleated RBC 0.2 /100WBC 05/16/20 05:20 Total Counted 100 05/16/20 05:20 Neutrophils % (Manual) 60 % (39-76) 05/16/20 05:20 Band Neutrophils % 20 % (0-10) H 05/16/20 05:20 Lymphocytes % (Manual) 10 % (13-43) L 05/16/20 05:20 Monocytes % (Manual) 2 % (4-9) L 05/16/20 05:20 Metamyelocytes % 8 05/16/20 05:20 Plt Morphology Comment Normal (NORMAL) 05/16/20 05:20 RBC Morphology Abnormal (NORMAL) 05/16/20 05:20 Hypochromasia Slight A 05/16/20 05:20 Sample Site Rr 05/16/20 08:41 ABG pH 7.290 (7.35-7.45) L 05/16/20 08:41 ABG pCO2 18.0 mmHg (35.0-45.0) L* 05/16/20 08:41 ABG pO2 188.0 mmHg (80.0-100.0) H 05/16/20 08:41 ABG HCO3 8.7 mmol/L (22-26) L* 05/16/20 08:41 ABG O2 Saturation 100.0 % (90-100) 05/16/20 08:41 ABG Base Excess -15.6 mmol/L (-2.0-2.0) L 05/16/20 08:41 Calixto Test Pos 05/16/20 08:41 A-a Gradient 503.0 mmHg 05/16/20 08:41 FiO2 100.0 05/16/20 08:41 Blood Gas Comments Pt pauline well. cdn 05/16/20 08:41 Sodium 145 mmol/L (136-145) 05/16/20 05:20 Corrected Sodium 148 mmol/L (136-145) H 05/16/20 05:20 Potassium 5.3 mmol/L (3.5-5.1) H 05/16/20 05:20 Chloride 113 mmol/L (98-107) H 05/16/20 05:20 Carbon Dioxide 11.3 mmol/L (21-32) L* 05/16/20 05:20 BUN 63 mg/dL (7-18) H 05/16/20 05:20 Creatinine 3.14 mg/dL (0.70-1.30) H 05/16/20 05:20 Est GFR (MDRD) Af Amer 25 (>60) L 05/16/20 05:20 Est GFR (MDRD) Non-Af 20 (>60) L 05/16/20 05:20 Glucose 207 mg/dL (65-99) H 05/16/20 05:20 POC Glucose (mg/dL) 170 mg/dL (65-99) H 05/16/20 06:21 Calcium 8.4 mg/dL (8.5-10.1) L 05/16/20 05:20 Corrected Calcium 9.8 mg/dL (8.5-10.1) 09/04/20 05:20 Ferritin > 42085 ng/mL (26-388) H 05/16/20 05:20 Total Bilirubin 0.50 mg/dL (0.2-1.0) 05/16/20 05:20 AST 261 Units/L (15-37) H 05/16/20 05:20 ALT 187 Units/L (12-78) H 05/16/20 05:20 Alkaline Phosphatase 72 Units/L (46-116) 05/16/20 05:20 Troponin I < 0.02 ng/mL (0-1.5) 05/13/20 20:44 C-Reactive Protein 513.10 mg/L (0-3.0) H 05/16/20 05:20 Total Protein 6.8 g/dL (6.4-8.2) 05/16/20 05:20 Albumin 2.2 g/dL (3.4-5.0) L 05/16/20 05:20 Globulin 4.6 g/dL (2.5-4.5) H 05/16/20 05:20 Albumin/Globulin Ratio 0.5 Ratio (1.1-2.1) L 05/16/20 05:20 Blood Type O NEGATIVE 05/14/20 08:49 - Plan (1) Pneumonia due to COVID-19 virus Status: Acute Plan: NS AT 100 ML/HR, LEVAQUIN 750MG IV Q48H, REMDESIVIR 100MG IV DAILY, SOLU- MEDROL 80MG IV Q8H, DUONEBS QID, PULMICORT NEBS BID, MUCOMYST IN NEBS BID, TUSSIONEX 5ML PO Q12H, ROBITUSSIN DM 10ML PO QID, HUMULIN R SLIDING SCALE, PEPCID IV, PROTONIX IV, AND LOVENOX 30MG SC DAILY. WE WILL REVIEW HIS HOME MEDICATIONS. (2) Hypoxia Status: Acute (3) Leukopenia Status: Acute Qualifiers: Leukopenia type: lymphocytopenia Qualified Code(s): D72.810 - Lymphocytopenia (4) Dyspnea Status: Acute Qualifiers: Dyspnea type: acute respiratory distress Qualified Code(s): R06.03 - Acute respiratory distress (5) Diabetes mellitus, type 2 Status: Chronic Qualifiers: Diabetes mellitus local company intermodal truck driver insulin use: with local company intermodal truck driver use Diabetes mellitus complication status: without complication Qualified Code(s): E11.9 - Type 2 diabetes mellitus without complications; Z79.4 - senior care (current) use of insulin
[2020-05-16] MEDS: ARICEPT TAB 5 MG PO SCH (11:32)
[2020-05-16] MEDS: FERROUS GLUCONATE PO SCH (11:32)
[2020-05-16] MEDS: GLUCOPHAGE XR 24-HR PO SCH ×2 (11:33→22:25)
[2020-05-16] MEDS: MEGACE PO SCH ×2 (11:33→22:26)
[2020-05-16] MEDS: ROBITUSSIN DM PO SCH ×4 (11:33→22:27)
[2020-05-16] MEDS: PLAVIX PO SCH (11:33)
[2020-05-16] MEDS: TUSSIONEX PENNKINETIC SUSP PO SCH ×2 (11:34→22:27)
[2020-05-16] MEDS: VITAMIN C PO SCH (11:34)
[2020-05-16] MEDS: VITAMIN D3 125 mcg (5,000 UNITS) PO SCH (11:34)
[2020-05-16] MEDS: TAB-A-VITE PO SCH (11:34)
[2020-05-16] MEDS: ZyrTEC TAB 10 MG PO SCH (11:35)
[2020-05-16] MEDS: ZINC SULFATE PO SCH ×2 (11:35→22:28)
[2020-05-16] MEDS: ZESTRIL TAB 10 MG PO SCH (11:35)
[2020-05-16] MEDS: LEVAQUIN PREMIX IV 750 MG 750 MG/150 ML BAG IV SCH (12:39)
[2020-05-16] MEDS: HALDOL INJ IM PRN ×2 (15:10→22:30)
[2020-05-16] MEDS: KLONOPIN TAB 1 MG PO SCH (22:25)
[2020-05-16] MEDS: SNACK - Diabetic Appropriate PO SCH (22:27)
[2020-05-16] MEDS: ZOCOR TAB 20 MG PO SCH (22:29)
[2020-05-17] MEDS: NS 1000 ML 1,000 ML IV SCH (05:14)
[2020-05-17] MEDS: SOLU-Medrol 40 MG VIAL IVP SCH ×2 (05:14→16:45)
[2020-05-17] MEDS: TESSALON PERLES PO SCH ×2 (05:15→14:43)
[2020-05-17 05:40] LABS: ABG BASE EXCESS -21.9 mmol/L (-2.0-2.0)
[2020-05-17 05:42] LABS: ABG ALLEN TEST POS; ABG HCO3 5.7 mmol/L (22-26)
--- NOTE | 2020-05-17 06:41 | RAD ---
HISTORYSOBSTUDYPortable AP [id number] size remains upper normal to slightly enlarged. There is no change in degree or distribution of bilateral pulmonary infiltrates. There is no large pleural effusion or pneumothorax seen.IMPRESSIONNo change. Bilateral pulmonary infiltrates consistent with pneumonia.Electronically signed by: SOWMYA GARCÍA (May 17, 2020 06:40:33)
[2020-05-17 07:31] LABS: ALANINE AMINOTRANSFERASE 648 Units/L (12-78); ALKALINE PHOSPHATASE 77 Units/L (46-116); ASPARTATE AMINO TRANSFERASE 712 Units/L (15-37); BLOOD UREA NITROGEN 105 mg/dL (7-18); CALCIUM 7.4 mg/dL (8.5-10.1); COR NA(FOR HYPERGLY) 152 mmol/L (136-145); CREATININE 4.34 mg/dL (0.70-1.30); TOTAL PROTEIN 5.9 g/dL (6.4-8.2); eGFR NON BLACK RACES 14 (>60)
[2020-05-17 07:32] LABS: BASOPHILS % (AUTO) 0.2 % (0.2-1.0); EOSINOPHILS % (AUTO) 1.4 % (0.9-2.9); HEMATOCRIT 26.7 % (42.0-54.0); HEMOGLOBIN 8.4 g/dL (13.5-18.0); LYMPHOCYTES # (AUTO) 0.1 X10^3/uL (1.3-2.9); LYMPHOCYTES % (AUTO) 6.5 % (21.0-51.0); MEAN CORPUSCULAR HEMOGLOBIN 28.8 pg (27.0-34.0); MEAN CORPUSCULAR HGB CONC 31.4 g/dL (33.0-35.0); MEAN CORPUSCULAR VOLUME 91.6 fL (80.0-100.0); MEAN PLATELET VOLUME 9.3 fL (7.4-11.0); MONOCYTES # (AUTO) 0 x10^3/uL (0.3-0.8); MONOCYTES % (AUTO) 1.8 % (0.0-13.0); NEUTROPHILS # (AUTO) 1.3 x10^3/uL (2.2-4.8); NEUTROPHILS % (AUTO) 90.1 % (42.0-75.0); PLATELET COUNT 76 X10^3/uL (150.0-450.0); RED BLOOD COUNT 2.91 X10^6/uL (4.7-6.0); RED CELL DISTRIBUTION WIDTH 17.8 % (11.6-16.5)
[2020-05-17 07:38] LABS: CARBON DIOXIDE 9.8 mmol/L (21-32); CHLORIDE 117 mmol/L (98-107); SODIUM 150 mmol/L (136-145)
[2020-05-17 07:39] LABS: WHITE BLOOD COUNT 1.4 X10^3/uL (3.6-10.0)
[2020-05-17 08:06] LABS: BAND NEUTROPHILS % 24 % (0-10); PLATELET MORPHOLOGY COMMENT NORMAL (NORMAL)
[2020-05-17] MEDS: ARICEPT TAB 5 MG PO SCH (08:31)
[2020-05-17] MEDS: GLUCOPHAGE XR 24-HR PO SCH (08:32)
[2020-05-17] MEDS: FERROUS GLUCONATE PO SCH (08:32)
[2020-05-17] MEDS: ZINC SULFATE PO SCH (08:32)
[2020-05-17] MEDS: TUSSIONEX PENNKINETIC SUSP PO SCH (08:33)
[2020-05-17] MEDS: ZyrTEC TAB 10 MG PO SCH (08:33)
[2020-05-17] MEDS: ZESTRIL TAB 10 MG PO SCH (08:33)
[2020-05-17] MEDS: VITAMIN D3 125 mcg (5,000 UNITS) PO SCH (08:34)
[2020-05-17] MEDS: VITAMIN C PO SCH (08:34)
[2020-05-17] MEDS: MEGACE PO SCH (08:34)
[2020-05-17] MEDS: PLAVIX PO SCH (08:34)
[2020-05-17] MEDS: TAB-A-VITE PO SCH (08:34)
[2020-05-17] MEDS: ROBITUSSIN DM PO SCH ×3 (08:35→17:06)
[2020-05-17] MEDS: DUONEB 0.5 MG/3 MG (3 mL) NEB SCH ×3 (09:30→17:05)
[2020-05-17] MEDS: MUCOMYST (RESPIRATORY USE ONLY) NEB SCH (09:30)
[2020-05-17] MEDS: PULMICORT NEB TX 0.5 MG NEB SCH (09:30)
[2020-05-17] MEDS ORDERED: NS 1000 ML 1,000 ML IV ONE (10:31)
[2020-05-17] MEDS ORDERED: NS 1000 ML 1,000 ML with SODIUM BICARBONATE 8.4% INJ ADULT 50 ML IV SCH ×2 (11:00)
[2020-05-17] MEDS: LOVENOX INJ 30 MG SYR SC SCH (11:33)
[2020-05-17] MEDS: PROTONIX INJ 40 MG VIAL IVP SCH (11:35)
[2020-05-17] MEDS: PEPCID 20 MG IV PREMIX* 20 MG/50 ML BAG IV SCH (11:36)
[2020-05-17] MEDS: REMDESIVIR (INVESTIGATIONAL DRUG GS-5734) 100 MG in NS 250 ML IV 250 ML IV SCH (11:36)
[2020-05-17] MEDS: MORPHINE SULFATE PCA 30 MG IVP SCH ×5 (13:12→17:02)
[2020-05-17 16:55] VITALS: BP 120/84
== END 2020-05-17 19:05 | disposition expired | DRG 177 ==
LOC: ER 19:45 → MED/SURG 22:33 → ICU 05-16 16:00
PROVIDERS: ADMIT Internal Medicine; ATTEND Internal Medicine